=== PATIENT | male | born 1990 | race Caucasian/White ===

== ENCOUNTER 2024-08-10 16:51 | Inpatient (IN) ==
--- NOTE | 2024-08-10 17:21 | Emergency Department Note ---
Impression & Plan Chest pain, Non-ST elevation DE (NSTEMI), Bilateral pleural effusion, Sinus tachycardia ED Provider Note HISTORY OF PRESENT ILLNESS: Patient is a 33-year-old male presenting with chest pain. Patient reports for the last 3 days he has been having persistent substernal chest pain. Locates the pain in the substernal region and states that it does not radiate into his back or abdomen. He states that it seems to wax and wane in intensity. Currently rates it a 3 out of 10. He describes it as a pressure sensation. Pain is worse with laying flat. Has had some associated shortness of breath with the chest pain. Denies any recent fevers. Denies any DVT or PE history. Denies any history of cardiac stents. He is not on any anticoagulation or antiplatelet therapy. Denies any nausea, vomiting or diarrhea. He denies any injury to the chest. Denies ever having chest pain like this before. He was unable to sleep last night secondary to discomfort while laying flat. He states he feels like he cannot take a deep breath. ROS: as above PHYSICAL EXAM: Constitutional: Patient appears in no acute distress. HENT: Head: Normocephalic and atraumatic. Eyes: EOMI, PERRL Mouth/Throat: Mucous membranes moist. Neck: Trachea midline. Neck supple. Cardiovascular: Tachycardic with regular rhythm. No murmurs, rubs or gallops. Intact distal pulses. Pulmonary/Chest: No respiratory distress. Breath sounds clear and equal bilaterally. No wheezes or rales. Abdominal: Abdomen soft, no tenderness, rebound or guarding. Musculoskeletal: No edema, tenderness or deformity noted. Skin: Warm and dry. No rash, erythema, pallor or cyanosis Psychiatric: Appropriate mood and affect for situation. Neurological: Alert and keenly responsive. CN II-XII grossly intact, moving all extremities equally and fully. MDM: - Vitals signs showed hypertension and tachycardia - History obtained via patient. History as above. - Chronic conditions affecting care: None - Differential diagnoses include, but are not limited to: Acute coronary syndrome; pulmonary embolism; dissection; tension pneumothorax; esophageal rupture; pneumonia - Order placed for continuous cardiac monitoring. At this time, monitor showed rate of 128 bpm with normal sinus rhythm, per my interpretation. - External medical records reviewed. - EKG interpreted by myself showed normal sinus rhythm. Rate tachycardic at 122 bpm. QT 328. No acute ischemic changes. However, noted to have some T wave inversions and depressions in leads I, II and aVF, as well as in V4 through V6. - Laboratory workup interpreted by myself showed normal WBC; normal PT/INR; elevated dimer (770); normal electrolytes; elevated troponin (34.1) - CXR negative for pneumonia, per my interpretation - Repeat troponin slightly elevated at 34.5 - Viral respiratory panel negative - CT PE negative for PE. However, noted to have small bilateral pleural effusions layering 1.5 cm on the left and 4 cm on the right. Noted to have some slight central edema and small amount of subsegmental atelectasis. Heart is enlarged but no pericardial effusion. - Discussion was had with case planner about patient's case and need for admission - Hospitalist, Dr. Jackson, consulted for admission - [facility] ASSESSMENT AND PLAN: Diagnosis: Chest pain; NSTEMI; bilateral pleural effusions; sinus tachycardia Plan: admit Past Med/Surg History Problem List (Updated 08/10/24 @ 22:40 by Jackeline Andrade MD) Sinus tachycardia (Acute) Bilateral pleural effusion (Acute) Non-ST elevation DE (NSTEMI) (Acute) Chest pain (Acute) Ankle sprain (Acute) Social History Smoking Status: Current every day smoker Tobacco Type: E-cigarettes / Vaping Preferred Language: Slovenian Feels Safe at Home: Yes Allergies Allergies Allergy/AdvReac Type Severity Reaction Status Date / Time No Known Allergies Allergy Unverified 08/10/24 17:15 Home Meds Home Medications Medication Instructions Recorded Confirmed No Known Home Medications 08/10/24 08/10/24 Results & Data (ED) Vital Signs Vital Signs - 24 hr 08/10/24 16:56 08/10/24 17:25 08/10/24 17:26 Temperature 36.6 C Temperature Source Temporal Artery Scan Pulse Rate 126 H 118 H Pulse Rate [Apical] Pulse Rate from SpO2 Sensor Pulse Rhythm Regular Pulse Rhythm [Apical] Pulse Strength Normal Respiratory Rate 19 Respiratory Effort / Characteristics Non-Labored Respiratory Depth Normal Respiratory Pattern Regular Blood Pressure 151/101 H 146/113 H Blood Pressure [Left Arm] Blood Pressure Mean 117 120 Blood Pressure Mean [Left Arm] Blood Pressure Position Sitting Pulse Oximetry 100 Oxygen Delivery Method Room Air Sepsis Recent Fever Within 48 Hours No Sepsis New/Unexplained Change in Mental Status No Sepsis Action Taken by Nursing No Action Required 08/10/24 17:39 08/10/24 17:51 08/10/24 18:00 Temperature Temperature Source Pulse Rate 116 H 116 H Pulse Rate [Apical] Pulse Rate from SpO2 Sensor 116 H Pulse Rhythm Pulse Rhythm [Apical] Pulse Strength Respiratory Rate 15 19 Respiratory Effort / Characteristics Respiratory Depth Respiratory Pattern Blood Pressure 129/107 H Blood Pressure [Left Arm] Blood Pressure Mean 122 Blood Pressure Mean [Left Arm] Blood Pressure Position Pulse Oximetry 99 Oxygen Delivery Method Sepsis Recent Fever Within 48 Hours Sepsis New/Unexplained Change in Mental Status Sepsis Action Taken by Nursing 08/10/24 18:03 08/10/24 18:14 08/10/24 19:30 Temperature Temperature Source Pulse Rate 117 H Pulse Rate [Apical] Pulse Rate from SpO2 Sensor 118 H Pulse Rhythm Pulse Rhythm [Apical] Pulse Strength Respiratory Rate 18 Respiratory Effort / Characteristics Respiratory Depth Respiratory Pattern Blood Pressure Blood Pressure [Left Arm] Blood Pressure Mean Blood Pressure Mean [Left Arm] Blood Pressure Position Pulse Oximetry 98 97 99 Oxygen Delivery Method Room Air Room Air Sepsis Recent Fever Within 48 Hours Sepsis New/Unexplained Change in Mental Status Sepsis Action Taken by Nursing 08/10/24 19:30 08/10/24 21:00 08/10/24 22:13 Temperature Temperature Source Pulse Rate Pulse Rate [Apical] 117 H 119 H 120 H Pulse Rate from SpO2 Sensor Pulse Rhythm Pulse Rhythm [Apical] Regular Regular Pulse Strength Respiratory Rate 22 20 15 Respiratory Effort / Characteristics Non-Labored Spontaneous Non-Labored Spontaneous Non-Labored Spontaneous Respiratory Depth Normal Normal Normal Respiratory Pattern Regular Regular Regular Blood Pressure Blood Pressure [Left Arm] 142/114 H 155/118 H 162/123 H Blood Pressure Mean Blood Pressure Mean [Left Arm] 123 130 136 Blood Pressure Position Pulse Oximetry 99 99 100 Oxygen Delivery Method Room Air Room Air Room Air Sepsis Recent Fever Within 48 Hours Sepsis New/Unexplained Change in Mental Status Sepsis Action Taken by Nursing Laboratory Data 08/10/24 17:52 08/10/24 17:52 Lab Results 08/10/24 08/10/24 08/10/24 Range/Units 17:52 17:56 20:11 WBC 9.68 (4.8-10.8) K/ul RBC 4.94 (4.70-6.10) M/uL Hgb 15.5 (14.0-18.0) g/dl Hct 43.9 (42.0-52.0) % MCV 88.9 (80.0-100.0) fL MCH 31.4 (25.0-34.0) pg MCHC 35.3 (32.0-36.0) g/dL RDW Std Deviation 42.0 (36.4-46.3) fL RDW Coeff of Gabriel 12.9 (11.5-14.5) % Plt Count 294 (130-400) K/uL MPV 11.1 (9.4-12.4) fL Immature Gran % (Auto) 0.4 % Neut % (Auto) 68.1 % Lymph % (Auto) 24.1 % Douglas % (Auto) 5.5 % Eos % (Auto) 1.3 % Baso % (Auto) 0.6 % Neut # (Auto) 6.59 H (1.40-6.50) K/uL Lymph # (Auto) 2.33 (1.20-3.40) K/uL Douglas # (Auto) 0.53 (0.11-0.59) K/uL Eos # (Auto) 0.13 (0.00-0.50) K/uL Baso # (Auto) 0.06 (0.00-0.20) K/uL Immature Gran # (Auto) 0.04 (0.01-0.20) K/uL PT 11.3 (9.0-12.0) Seconds INR 1.0 (0.9-1.1) APTT 26 (21-31) Seconds PTT Ratio 1.0 D-Dimer 770 H* (0-500) ug/L FEU Sodium 138 (136-145) mmol/L Potassium 4.2 (3.5-5.1) mmol/L Chloride 107 (98-107) mmol/L Carbon Dioxide 23 (21-32) mmol/L Anion Gap 8 (3-11) BUN 23 (6-23) mg/dl Creatinine 1.24 (0.6-1.4) mg/dl Est Cr Clr Drug Dosing 95.7 ml/min Est GFR ( Amer) 88.6 ml/min Est GFR (Non-Af Amer) 76.4 ml/min BUN/Creatinine Ratio 18.5 (10-20) Glucose 84 (70-99(Fasting)) mg/dl Calcium 9.4 (8.6-10.3) mg/dl Magnesium 2.1 (1.7-2.4) mg/dl Total Bilirubin 0.6 (0.2-1.0) mg/dl AST 30 (13-39) U/L ALT 44 (7-52) U/L Alkaline Phosphatase 62 (34-104) U/L Troponin I High Sens 34.1 H 34.5 H (0-20) pg/ml Total Protein 6.4 (6.0-8.3) gm/dl Albumin 4.2 (3.4-5.0) gm/dl Globulin 2.2 L (2.5-4.0) gm/dl Albumin/Globulin Ratio 1.9 (0.9-2) Adenovirus (PCR) Not Detected (NotDetected) B. pertussis DNA (PCR) Not Detected (NotDetected) B.parapertussis DNA PCR Not Detected (NotDetected) C. pneumoniae DNA (PCR) Not Detected (NotDetected) Coronavirus OC43 (PCR) Not Detected (NotDetected) Coronavirus HKU1 (PCR) Not Detected (NotDetected) Coronavirus 229E (PCR) Not Detected (NotDetected) SARS-CoV-2 (PCR) Not Detected (NotDetected) Coronavirus NL63 (PCR) Not Detected (NotDetected) Human Metapneumovir PCR Not Detected (NotDetected) Influenza Type A (PCR) Not Detected (NotDetected) Influenza Type B (PCR) Not Detected (NotDetected) M. pneumoniae (PCR) Not Detected (NotDetected) Parainfluenza 1 (PCR) Not Detected (NotDetected) Parainfluenza 2 (PCR) Not Detected (NotDetected) Parainfluenza 3 (PCR) Not Detected (NotDetected) Parainfluenza 4 (PCR) Not Detected (NotDetected) RSV (PCR) Not Detected (NotDetected) Entero/Rhino (PCR) Not Detected (NotDetected) Administered Medications Discontinued Medications Clonidine HCl (Clonidine Hcl 0.1 Mg Tab) 0.1 mg PO NOW ONE Stop: 08/10/24 21:59 Last Admin: 08/10/24 22:15 Dose: 0.1 mg Documented By: CIELO Ioversol (Optiray 320 125ml) 119 ml IV ONCE ONE Stop: 08/10/24 19:23 Last Admin: 08/10/24 19:22 Dose: 119 ml Documented By: KARISSA Imaging Data Radiologist's Impression: Chest X-Ray 08/10/24 16:57 XR chest 1V not portable HISTORY: 33 years-old Male Chest pain, nonspecific acute chest pain COMPARISON: 11/19/2012 chest x-ray TECHNIQUE: AP view of the chest FINDINGS: Cardiac silhouette is enlarged. No pneumothorax, pleural effusion or airspace consolidation. Bones appear normal. IMPRESSION: 1. Enlargement of the cardiac silhouette may be accentuated by technique. 2. The lungs appear clear. ACT 112: Negative or not required by law. The above report was generated using voice recognition software. It may contain grammatical, syntax or spelling errors. Electronically signed by: Boston Brown M.D. 08/10/2024 5:58 PM Chest CTA 08/10/24 17:12 Exam(s): CTA CHEST IV Amt: 119ml EXAM: CT Angiography Chest With Intravenous Contrast CLINICAL HISTORY: Reason for exam: PE. TECHNIQUE: Axial computed tomographic angiography images of the chest with intravenous contrast. CTDI is 47.14 mGy and DLP is 1012.55 mGy-cm. Automated exposure control was utilized for the study. A dose lowering technique was utilized adhering to the principles of ALARA. MIP reconstructed images were created and reviewed. COMPARISON: Chest x-ray from August 10, 2024 FINDINGS: Pulmonary arteries: The pulmonary arterial tree is well opacified with contrast. No pulmonary embolism is identified. Aorta: No acute findings. No thoracic aortic aneurysm. Lungs: Lungs are well-inflated. Slight central edema is present as well as a small amount of bibasilar subsegmental atelectasis. No mass. Pleural space: There are small bilateral pleural effusions layering posteriorly measuring 1.5 cm on the left and 4 cm on the right. No pneumothorax. Heart: The heart is mildly to moderately enlarged. No pericardial effusion. No evidence of RV dysfunction. Bones/joints: Mild degenerative changes in the spine. No acute fracture or bone lesion is identified. No dislocation. Soft tissues: Unremarkable. Lymph nodes: Unremarkable. No enlarged lymph nodes. IMPRESSION: 1. Lungs are well-inflated. Slight central edema is present as well as a small amount of bibasilar subsegmental atelectasis. 2. There are small bilateral pleural effusions layering posteriorly measuring 1.5 cm on the left and 4 cm on the right. 3. The heart is mildly to moderately enlarged. No pericardial effusion. Consider CHF. 4. The pulmonary arterial tree is well opacified with contrast. No pulmonary embolism is identified. Electronically signed by: Ajay Carvajal MD 08/10/24 20:12 PM Discharge Plan Visit Data Chief Complaint: Chest Pain Stated Complaint: CHEST PAIN ED Provider: Jackeline Andrade Discharge Problem: Chest pain, Non-ST elevation DE (NSTEMI), Bilateral pleural effusion, Sinus tachycardia Forms Stand Alone Forms: Before the Call Prescriptions Prescriptions: No Action No Known Home Medications Referrals Referrals: PCP,NO [Physician] -
--- NOTE | 2024-08-10 18:00 | XRay Report ---
XR chest 1V not portable HISTORY: 33 years-old Male Chest pain, nonspecific acute chest pain COMPARISON: 11/19/2012 chest x-ray TECHNIQUE: AP view of the chest FINDINGS: Cardiac silhouette is enlarged. No pneumothorax, pleural effusion or airspace consolidation. Bones ap pear normal. IMPRESSION: 1. Enlargement of the cardiac silhouette may be accentuated by technique. 2. The lungs appear clear. ACT 112: Negative or not required by law. The above report was generated using voice recognition software. It may contain grammatical, syntax o r spelling errors. Electronically signed by: Boston Brown M.D. 08/10/2024 5:58 PM
[2024-08-10 18:34] LABS: Basophils # (auto) 0.06 K/uL (0.00-0.20); Basophils % (auto) 0.6 %; Eosinophils # (auto) 0.13 K/uL (0.00-0.50); Eosinophils % (auto) 1.3 %; Hematocrit (blood only) 43.9 % (42.0-52.0); Hemoglobin 15.5 g/dl (14.0-18.0); Immature Granulocytes # (auto) 0.04 K/uL (0.01-0.20); Immature Granulocytes % (auto) 0.4 %; Lymphocytes # (auto) 2.33 K/uL (1.20-3.40); Lymphocytes % (auto) 24.1 %; Mean Corpuscular Hemoglobin 31.4 pg (25.0-34.0); Mean Corpuscular Hgb Conc 35.3 g/dL (32.0-36.0); Mean Corpuscular Volume 88.9 fL (80.0-100.0); Mean Platelet Volume 11.1 fL (9.4-12.4); Monocytes # (auto) 0.53 K/uL (0.11-0.59); Monocytes % (auto) 5.5 %; Neutrophils # (auto) 6.59 K/uL (1.40-6.50); Neutrophils % (auto) 68.1 %; Platelet Count 294 K/uL (130-400); RDW Coefficient of Variation 12.9 % (11.5-14.5); Red Blood Count 4.94 M/uL (4.70-6.10); White Blood Count 9.68 K/ul (4.8-10.8)
[2024-08-10 18:52] LABS: Albumin Globulin Ratio 1.9 (0.9-2); Albumin Level 4.2 gm/dl (3.4-5.0); BUN Creatinine Ratio 18.5 (10-20); Bilirubin,Total 0.6 mg/dl (0.2-1.0); Calcium 9.4 mg/dl (8.6-10.3); Creatinine Clr Calc Pharmacy 95.7 ml/min; Est GFR (African American) 88.6 ml/min; Est GFR (Non-African American) 76.4 ml/min; Globulin 2.2 gm/dl (2.5-4.0); Magnesium 2.1 mg/dl (1.7-2.4); Potassium 4.2 mmol/L (3.5-5.1); Total Protein 6.4 gm/dl (6.0-8.3)
[2024-08-10 18:59] LABS: Troponin I High Sensitivity 34.1 pg/ml (0-20)
[2024-08-10 19:07] LABS: Partial Thromboplastin Time 26 Seconds (21-31); Prothrombin Time 11.3 Seconds (9.0-12.0)
[2024-08-10] MEDS: OPTIRAY 320 125ml IV ONE (19:22)
[2024-08-10 19:28] LABS: Adenovirus PCR Not Detected (NotDetected); Bordetella parapertussis PCR Not Detected (NotDetected); Bordetella pertussis PCR Not Detected (NotDetected); Chlamydia pneumoniae PCR Not Detected (NotDetected); Coronavirus 229E PCR Not Detected (NotDetected); Coronavirus CoV-2 (COVID19)PCR Not Detected (NotDetected); Coronavirus HKU1 PCR Not Detected (NotDetected); Coronavirus NL63 PCR Not Detected (NotDetected); Coronavirus OC43PCR Not Detected (NotDetected); Human Metapneumovirus PCR Not Detected (NotDetected); Influenza A PCR Not Detected (NotDetected); Influenza B PCR Not Detected (NotDetected); Mycoplasma pneumoniae PCR Not Detected (NotDetected); Parainfluenza Virus 1 PCR Not Detected (NotDetected); Parainfluenza Virus 2 PCR Not Detected (NotDetected); Parainfluenza Virus 3 PCR Not Detected (NotDetected); Parainfluenza Virus 4 PCR Not Detected (NotDetected); Respiratory Syncytial VirusPCR Not Detected (NotDetected); Rhinovirus/Enterovirus PCR Not Detected (NotDetected)
[2024-08-10 19:41] LABS: D Dimer 770 ug/L FEU (0-500)
--- NOTE | 2024-08-10 20:13 | CT Scan Report ---
Exam(s): CTA CHEST IV Amt: 119ml EXAM: CT Angiography Chest With Intravenous Contrast CLINICAL HISTORY: Reason for exam: PE. TECHNIQUE: Axial computed tomographic angiography images of the chest with intravenous contrast. CTDI is 47.14 mGy and DLP is 1012.55 mGy-cm. Automated exposure control was utilized for the study. A dose lowering technique was utilized adhering to the principles of ALARA. MIP reconstructed images were created and reviewed. COMPARISON: Chest x-ray from August 10, 2024 FINDINGS: Pulmonary arteries: The pulmonary arterial tree is well opacified with contrast. No pulmonary embolism is identified. Aorta: No acute findings. No thoracic aortic aneurysm. Lungs: Lungs are well-inflated. Slight central edema is present as well as a small amount of bibasilar subsegmental atelectasis. No mass. Pleural space: There are small bilateral pleural effusions layering posteriorly measuring 1.5 cm on the left and 4 cm on the right. No pneumothorax. Heart: The heart is mildly to moderately enlarged. No pericardial effusion. No evidence of RV dysfunction. Bones/joints: Mild degenerative changes in the spine. No acute fracture or bone lesion is identified. No dislocation. Soft tissues: Unremarkable. Lymph nodes: Unremarkable. No enlarged lymph nodes. IMPRESSION: 1. Lungs are well-inflated. Slight central edema is present as well as a small amount of bibasilar subsegmental atelectasis. 2. There are small bilateral pleural effusions layering posteriorly measuring 1.5 cm on the left and 4 cm on the right. 3. The heart is mildly to moderately enlarged. No pericardial effusion. Consider CHF. 4. The pulmonary arterial tree is well opacified with contrast. No pulmonary embolism is identified. Electronically signed by: Ajay Carvajal MD 08/10/24 20:12 PM
[2024-08-10] MEDS: cloNIDine HCL 0.1 MG TAB PO ONE (22:15)
--- NOTE | 2024-08-10 22:46 | History & Physical Report ---
Date of Service August 10, 2024 Assessment & Plan (1) CHF (congestive heart failure): Plan: Etiology to be determined Chest pain from uncontrolled hypertension Likely chronic BP elevation given LVH Possible NSTEMI given relief with nitroglycerin Rosacea Admit to PCU Lasix 1 dose Strict I/Os, daily weights, CHF education Initiate beta-nancy for BP control and CHF Aspirin for CAD prevention until ACS ruled out Follow troponin TTE, Cardiology consult Re: CHF, chest pain N.p.o. in anticipation of ischemic workup Topical metronidazole for rosacea DVT prophylaxis per Lovenox subcu Full code Patient mother requesting updates providers. Ms. Joselo Horn, contact #[phone]. Text document was generated using [employer] voice recognition software. It may contain grammatical or spelling errors. Kindly contact undersigned for clarification of any documentation item in question. History of Present Illness Chief Complaint: Chest pain Primary Care Provider: Marshal Jamison, History obtained from patient, family, and records. No significant medical history. 3 days history of persistent pressure-like substernal pain without radiation. SOB from not being able to take a deep breath. Somewhat worse in the supine position. No fever, no chills, no cough symptoms. No headache. No URTI symptoms. No trauma. No fluid retention. Patient/family unaware of sleep apnea symptoms. Highest SBP of 160s documented at the ER. Chest pain improved with nitroglycerin administration at the ER. 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 Allergies Allergy/AdvReac Type Severity Reaction Status Date / Time No Known Allergies Allergy Unverified 08/10/24 17:15 Home Medications Medication Instructions Recorded Confirmed Type No Known Home Medications 08/10/24 08/10/24 History Past Med/Surg History Problem List (Updated 08/11/24 @ 03:37 by Lukas Jackson MD) CHF (congestive heart failure) Sinus tachycardia (Acute) Bilateral pleural effusion (Acute) Non-ST elevation LA (NSTEMI) (Acute) Chest pain (Acute) Ankle sprain (Acute) Social History Smoking Status: Current every day smoker Tobacco Type: E-cigarettes / Vaping Hx Alcohol Use: No Hx Substance Use: Yes Preferred Language: Finnish Community Living Instructor Required: No Beliefs That Will Affect Care: None Current Living Situation: Parent Feels Safe at Home: Yes Assistive Devices: None Review of Systems Review of Systems: As per HPI, all other systems reviewed and negative Physical Exam Physical Exam: GENERAL: Slightly uncomfortable, no respiratory distress SKIN: Normal color, warm HEENT: Red rash over both maxillae, pink palpebral conjunctivae, no ptosis, dry buccal mucosa NECK : Supple, no tenderness CHEST : Decreased breath sounds, no tenderness HEART : Tachycardic, no obvious murmurs ABDOMEN: Some distention, nontender EXTREMITIES : No LE swelling/tenderness, no other conspicuous deformities noted NEUROLOGIC : Coherent, no facial asymmetry, no other gross focality Results & Data Results & Data Vital Signs (Past 12 Hours) Vital Signs Temp Pulse Pulse Resp BP BP Pulse Ox 08/10/24 22:13 120 H 15 162/123 H 100 08/10/24 21:00 119 H 20 155/118 H 99 08/10/24 19:30 117 H 22 142/114 H 99 08/10/24 19:30 99 08/10/24 18:14 97 08/10/24 18:03 117 H 18 98 08/10/24 18:00 129/107 H 08/10/24 17:51 116 H 19 99 08/10/24 17:39 116 H 15 08/10/24 17:26 146/113 H 08/10/24 17:25 118 H 08/10/24 16:56 36.6 C 126 H 19 151/101 H 100 O2 Del Method 08/10/24 22:13 Room Air 08/10/24 21:00 Room Air 08/10/24 19:30 Room Air 08/10/24 19:30 Room Air 08/10/24 18:14 Room Air 08/10/24 18:03 08/10/24 18:00 08/10/24 17:51 08/10/24 17:39 08/10/24 17:26 08/10/24 17:25 08/10/24 16:56 Room Air Laboratory Results Laboratory Results WBC 9.68 K/ul (4.8-10.8) 08/10/24 17:52 RBC 4.94 M/uL (4.70-6.10) 08/10/24 17:52 Hgb 15.5 g/dl (14.0-18.0) 08/10/24 17:52 Hct 43.9 % (42.0-52.0) 08/10/24 17:52 MCV 88.9 fL (80.0-100.0) 08/10/24 17:52 MCH 31.4 pg (25.0-34.0) 08/10/24 17:52 MCHC 35.3 g/dL (32.0-36.0) 08/10/24 17:52 RDW Std Deviation 42.0 fL (36.4-46.3) 08/10/24 17:52 RDW Coeff of Gabriel 12.9 % (11.5-14.5) 08/10/24 17:52 Plt Count 294 K/uL (130-400) 08/10/24 17:52 MPV 11.1 fL (9.4-12.4) 08/10/24 17:52 Immature Gran % (Auto) 0.4 % 08/10/24 17:52 Neut % (Auto) 68.1 % 08/10/24 17:52 Lymph % (Auto) 24.1 % 08/10/24 17:52 [place] % (Auto) 5.5 % 08/10/24 17:52 Eos % (Auto) 1.3 % 08/10/24 17:52 Baso % (Auto) 0.6 % 08/10/24 17:52 Neut # (Auto) 6.59 K/uL (1.40-6.50) H 08/10/24 17:52 Lymph # (Auto) 2.33 K/uL (1.20-3.40) 08/10/24 17:52 [place] # (Auto) 0.53 K/uL (0.11-0.59) 08/10/24 17:52 Eos # (Auto) 0.13 K/uL (0.00-0.50) 08/10/24 17:52 Baso # (Auto) 0.06 K/uL (0.00-0.20) 08/10/24 17:52 Immature Gran # (Auto) 0.04 K/uL (0.01-0.20) 08/10/24 17:52 ESR 4 mm/hr (0-15) 08/10/24 17:52 PT 11.3 Seconds (9.0-12.0) 08/10/24 17:52 INR 1.0 (0.9-1.1) 08/10/24 17:52 APTT 26 Seconds (21-31) 08/10/24 17:52 PTT Ratio 1.0 08/10/24 17:52 D-Dimer 770 ug/L FEU (0-500) H* 08/10/24 17:52 Sodium 138 mmol/L (136-145) 08/10/24 17:52 Potassium 4.2 mmol/L (3.5-5.1) 08/10/24 17:52 Chloride 107 mmol/L (98-107) 08/10/24 17:52 Carbon Dioxide 23 mmol/L (21-32) 08/10/24 17:52 Anion Gap 8 (3-11) 08/10/24 17:52 BUN 23 mg/dl (6-23) 08/10/24 17:52 Creatinine 1.24 mg/dl (0.6-1.4) 08/10/24 17:52 Est Cr Clr Drug Dosing 95.7 ml/min 08/10/24 17:52 Est GFR ( Amer) 88.6 ml/min 08/10/24 17:52 Est GFR (Non-Af Amer) 76.4 ml/min 08/10/24 17:52 BUN/Creatinine Ratio 18.5 (10-20) 08/10/24 17:52 Glucose 84 mg/dl (70-99(Fasting)) 08/10/24 17:52 Calcium 9.4 mg/dl (8.6-10.3) 08/10/24 17:52 Magnesium 2.1 mg/dl (1.7-2.4) 08/10/24 17:52 Total Bilirubin 0.6 mg/dl (0.2-1.0) 08/10/24 17:52 AST 30 U/L (13-39) 08/10/24 17:52 ALT 44 U/L (7-52) 08/10/24 17:52 Alkaline Phosphatase 62 U/L (34-104) 08/10/24 17:52 Troponin I High Sens 34.5 pg/ml (0-20) H 08/10/24 20:11 Total Protein 6.4 gm/dl (6.0-8.3) 08/10/24 17:52 Albumin 4.2 gm/dl (3.4-5.0) 08/10/24 17:52 Globulin 2.2 gm/dl (2.5-4.0) L 08/10/24 17:52 Albumin/Globulin Ratio 1.9 (0.9-2) 08/10/24 17:52 Adenovirus (PCR) Not Detected (NotDetected) 08/10/24 17:56 B. pertussis DNA (PCR) Not Detected (NotDetected) 08/10/24 17:56 B.parapertussis DNA PCR Not Detected (NotDetected) 08/10/24 17:56 C. pneumoniae DNA (PCR) Not Detected (NotDetected) 08/10/24 17:56 Coronavirus OC43 (PCR) Not Detected (NotDetected) 08/10/24 17:56 Coronavirus HKU1 (PCR) Not Detected (NotDetected) 08/10/24 17:56 Coronavirus 229E (PCR) Not Detected (NotDetected) 08/10/24 17:56 SARS-CoV-2 (PCR) Not Detected (NotDetected) 08/10/24 17:56 Coronavirus NL63 (PCR) Not Detected (NotDetected) 08/10/24 17:56 Human Metapneumovir PCR Not Detected (NotDetected) 08/10/24 17:56 Influenza Type A (PCR) Not Detected (NotDetected) 08/10/24 17:56 Influenza Type B (PCR) Not Detected (NotDetected) 08/10/24 17:56 M. pneumoniae (PCR) Not Detected (NotDetected) 08/10/24 17:56 Parainfluenza 1 (PCR) Not Detected (NotDetected) 08/10/24 17:56 Parainfluenza 2 (PCR) Not Detected (NotDetected) 08/10/24 17:56 Parainfluenza 3 (PCR) Not Detected (NotDetected) 08/10/24 17:56 Parainfluenza 4 (PCR) Not Detected (NotDetected) 08/10/24 17:56 RSV (PCR) Not Detected (NotDetected) 08/10/24 17:56 Entero/Rhino (PCR) Not Detected (NotDetected) 08/10/24 17:56 Impressions Chest X-Ray 08/10/24 16:57 XR chest 1V not portable HISTORY: 33 years-old Male Chest pain, nonspecific acute chest pain COMPARISON: 11/19/2012 chest x-ray TECHNIQUE: AP view of the chest FINDINGS: Cardiac silhouette is enlarged. No pneumothorax, pleural effusion or airspace consolidation. Bones appear normal. IMPRESSION: 1. Enlargement of the cardiac silhouette may be accentuated by technique. 2. The lungs appear clear. ACT 112: Negative or not required by law. The above report was generated using voice recognition software. It may contain grammatical, syntax or spelling errors. Electronically signed by: Boston Brown M.D. 08/10/2024 5:58 PM Chest CTA 08/10/24 17:12 Exam(s): CTA CHEST IV Amt: 119ml EXAM: CT Angiography Chest With Intravenous Contrast CLINICAL HISTORY: Reason for exam: PE. TECHNIQUE: Axial computed tomographic angiography images of the chest with intravenous contrast. CTDI is 47.14 mGy and DLP is 1012.55 mGy-cm. Automated exposure control was utilized for the study. A dose lowering technique was utilized adhering to the principles of ALARA. MIP reconstructed images were created and reviewed. COMPARISON: Chest x-ray from August 10, 2024 FINDINGS: Pulmonary arteries: The pulmonary arterial tree is well opacified with contrast. No pulmonary embolism is identified. Aorta: No acute findings. No thoracic aortic aneurysm. Lungs: Lungs are well-inflated. Slight central edema is present as well as a small amount of bibasilar subsegmental atelectasis. No mass. Pleural space: There are small bilateral pleural effusions layering posteriorly measuring 1.5 cm on the left and 4 cm on the right. No pneumothorax. Heart: The heart is mildly to moderately enlarged. No pericardial effusion. No evidence of RV dysfunction. Bones/joints: Mild degenerative changes in the spine. No acute fracture or bone lesion is identified. No dislocation. Soft tissues: Unremarkable. Lymph nodes: Unremarkable. No enlarged lymph nodes. IMPRESSION: 1. Lungs are well-inflated. Slight central edema is present as well as a small amount of bibasilar subsegmental atelectasis. 2. There are small bilateral pleural effusions layering posteriorly measuring 1.5 cm on the left and 4 cm on the right. 3. The heart is mildly to moderately enlarged. No pericardial effusion. Consider CHF. 4. The pulmonary arterial tree is well opacified with contrast. No pulmonary embolism is identified. Electronically signed by: Ajay Carvajal MD 08/10/24 20:12 PM Diagnostic Findings EKG as per my interpretation : Rate 120, sinus tachycardia, normal axis, T wave inversion inferior and lateral leads
[2024-08-10] MEDS ORDERED: LORazepam 0.5 MG TAB PO PRN (22:48)
[2024-08-10] MEDS ORDERED: NITROGLYCERIN SL 0.4 MG/TAB TAB SL PRN (22:48)
[2024-08-10] MEDS ORDERED: PROMETHAZINE 6.25 MG/50.25 ML BAG IV PRN (22:48)
[2024-08-10] MEDS ORDERED: oxyCODONE HCL IR 5 MG TAB (IMMEDIATE RELEASE) PO PRN (22:48)
[2024-08-10] MEDS ORDERED: MoRPHine SULFATE 4 MG/ML 1 ML CARP\\VIAL IV PRN (22:48)
[2024-08-10 22:53] LABS: Thyroid Stimulating Hormone 3.871 uIu/ml (0.300-4.500)
[2024-08-10] MEDS: NITROGLYCERIN SL 0.4 MG/TAB TAB SL STA (23:07)
[2024-08-10] MEDS: ALBUMIN 25% 25 GM/100 ML VIAL IV ONE (23:08)
[2024-08-10 23:16] LABS: C Reactive Protein 0.54 mg/dl (0-0.5)
[2024-08-10 23:33] LABS: Appearance Urine Clear (Clear); Bilirubin Urine Negative (Negative); Blood Urine Negative (Negative); Color Urine Yellow; Glucose Urine UA Negative (Negative); Ketones Urine 1+ (Negative); Leukocyte Esterase Urine Negative (Negative); Nitrite Urine Negative (Negative); Protein Urine Negative (Negative); Specific Gravity Urine 1.035 (1.000-1.030); Urobilinogen Urine Negative (Negative); pH Urine 5.5 (4.5-7.5)
[2024-08-11 00:01] LABS: Amphetamines+Metham, Urine Neg (Neg); Barbiturates, Urine Neg (Neg); Benzodiazepine, Urine Neg (Neg); Cocaine, Urine Neg (Neg); Fentanyl, Urine Neg (Neg); MDMA (Ecstacy), Urine Neg (Neg); Marijuana, Urine Pos (Neg); Methadone, Urine Neg (Neg); Opiate, Urine Neg (Neg); Phencyclidine, Urine Neg (Neg)
[2024-08-11] MEDS: METOPROLOL TARTRATE 25 MG TAB PO SCH (01:42)
[2024-08-11] MEDS: METOPROLOL TARTRATE 1 MG/ML VIAL IV STA (01:45)
[2024-08-11] MEDS: ASPIRIN 81 MG ECTAB PO STA (01:46)
[2024-08-11] MEDS: FUROSEMIDE INJ 20 MG/2 ML VIAL IV ONE (01:46)
[2024-08-11] MEDS: metroNIDAZOLE 0.75% TOPICAL GEL 45 GM TUBE TOP SCH (01:46)
[2024-08-11] MEDS: METOPROLOL TARTRATE 25 MG TAB PO STA (03:28)
--- OUTSIDE RECORDS SUMMARY | 2024-08-11 06:45 | External Medical Summary | Summary of Care ---
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 Name Role Phone Unavailable Primary Care Provider Unavailabl e Encounter Details Date Type Department Care Team (Late st Contact Info) Description 07/13/2024 Population Health External Data Unspecified Department Allergies No known active allergiesdocumented as of this encounter (statuses as of 07/13/2024) Medications Medication Sig Dispensed Refills Start Date End Date Status CLOBETASOL PROPIONATE 0.05 % EX SOLNIndications:Seborr heic dermatitis, unspecified Apply to scalp twice daily as needed 50 mL 5 06/03/2012 Active HYDROCORTISONE 2.5 % EX CREAIndications:Seborr heic dermatitis, unspecified Apply to affected area twice daily as needed 1 Tube 5 06/03/2012 Active documented as of this encounter (statuses as of 07/13/2024) Active Problems Problem Noted Date Diagnosed Date Other specified drug dependence, unspecified ADVANCE DIRECTIVE INFORMATION 08/11/2006 Overview: Not applicable documented as of this encounter (statuses as of 07/13/2024) Immunizations Name Administration Dates Next Due HEP A - Hepatitis A (Adult > 18 yrs) 01/21/2012 Meningococcal Conjugate Vaccine (Menactra/Menveo ) 08/11/2006 TDAP, Age 7 and older, IM (Adacel) 06/04/2011 Yellow Fever Vaccine, Live (YF-Vax) 01/21/2012 documented as of this encounter Social History Tobacco Use Types Packs/Day Years Used Date Smoking Tobacco: Some Days Smokeless Tobacco: Never Alcohol Use Standard Drinks/Week Comments Not Asked 0 (1 standard drink = 0.6 oz pur e alcohol) Utilities Answer Date Recorded Do you have trouble paying y our heating, water, or electric bill? (Adult - for ages 18 years and over) Not on file 05/03/2024 Is your family able to pay t he heat, water, or electric bill? (Household - for ages 0-17 years) Not on file 05/03/2024 Does your family have access to good internet? (Household - for ages 0-17 years) Not on file 05/03/2024 Social Connections Answer Date Recorded How often do you feel lonely or isolated from those around you? (Adult - for ages 18 years and over) Not on file 05/03/2024 Sex and Gender Information Value Date Recorded Sex Assigned at Not on file Gender Identity Not on file Sexual Orientation Not on file documented as of this encounter Plan of Treatment Health Maintenance Due Date Last Done Comments Pneumococcal Vaccine: Pediatrics (0 to 5 Years) and At-Risk Patients (6 to 64 Years) (1 of 2 - PCV) 1997 Depression Screening 2003 HIV Screening 2006 Hepatitis C Screening 2009 DTap/Tdap Vaccines (7 - Td or Tdap) 06/04/2021 06/04/2011, 04/24/2004, 10/12/1995, Additional history exists COVID-19 Vaccine (2022- season) 2023 Influenza Vaccine (FLU shot) (#1) 2024 Hepatitis B Vaccine Completed 02/16/1993, 09/17/1992, 08/17/1992 MENINGOCOCCAL (MENACTRA/MENVEO) Aged Out 08/11/2006 No longer eligible based on patient's age to complete this topic HPV (Gardasil) Vaccine Aged Out No lo nger eligible based on patient's age to complete this topic documented as of this encounter Medical Devices Not on filedocumented as of this encounter
[2024-08-11 07:40] LABS: Basophils # (auto) 0.06 K/uL (0.00-0.20); Basophils % (auto) 0.7 %; Eosinophils # (auto) 0.16 K/uL (0.00-0.50); Eosinophils % (auto) 1.8 %; Hematocrit (blood only) 45.7 % (42.0-52.0); Hemoglobin 16.1 g/dl (14.0-18.0); Immature Granulocytes # (auto) 0.03 K/uL (0.01-0.20); Immature Granulocytes % (auto) 0.3 %; Lymphocytes # (auto) 1.74 K/uL (1.20-3.40); Lymphocytes % (auto) 19.8 %; Mean Corpuscular Hemoglobin 31.4 pg (25.0-34.0); Mean Corpuscular Hgb Conc 35.2 g/dL (32.0-36.0); Mean Corpuscular Volume 89.3 fL (80.0-100.0); Mean Platelet Volume 10.2 fL (9.4-12.4); Monocytes # (auto) 0.46 K/uL (0.11-0.59); Monocytes % (auto) 5.2 %; Neutrophils # (auto) 6.32 K/uL (1.40-6.50); Neutrophils % (auto) 72.2 %; Platelet Count 281 K/uL (130-400); RDW Coefficient of Variation 12.9 % (11.5-14.5); RDW Standard Deviation 42.1 fL (36.4-46.3); Red Blood Count 5.12 M/uL (4.70-6.10); White Blood Count 8.77 K/ul (4.8-10.8)
[2024-08-11 08:26] LABS: Troponin I High Sensitivity 26.8 pg/ml (0-20)
[2024-08-11] MEDS: ENOXAPARIN INJ 40 MG/0.4 ML SYR SQ SCH (08:36)
[2024-08-11] MEDS ORDERED: ENOXAPARIN INJ 40 MG/0.4 ML SYR SQ SCH (09:00)
[2024-08-11] MEDS ORDERED: METOPROLOL TARTRATE 25 MG TAB PO SCH ×2 (09:00→21:00)
[2024-08-11 09:06] LABS: Calcium 9.5 mg/dl (8.6-10.3); Potassium 3.9 mmol/L (3.5-5.1)
[2024-08-11 09:13] LABS: BUN Creatinine Ratio 17.5 (10-20); Chol HDL Ratio 4.3 (0-5); Creatinine Clr Calc Pharmacy 98.5 ml/min; Est GFR (African American) 92.2 ml/min; Est GFR (Non-African American) 79.5 ml/min
--- NOTE | 2024-08-11 10:34 | Cardiology Consultation ---
Date of Consultation August 11, 2024 Assessment & Plan (1) Acute heart failure with reduced ejection fraction and diastolic dysfunction: (2) Sinus tachycardia: (3) Bilateral pleural effusion: (4) Elevated troponin I level: Plan 33-year-old male with new onset heart failure with reduced ejection fraction. Echocardiogram demonstrating severely reduced LV function. Family history of congestive heart failure in 2 first-degree relatives at young age (brother and father). Recommend initiation of goal-directed medical therapy. Toprol-XL 25 mg twice daily in addition to Entresto 24-25 mg twice daily. 40mg IV lasix x 1 now with close monitoring of fluid balance, daily weight, GFR, and electrolytes. Consider additional dose of IV diuresis this evening pending clinical response. Ultimately ischemic evaluation will be performed when patient has improved clinically from a heart failure perspective although I suspect cardiomyopathy is familial. Genetic testing will be arranged as an outpatient. Lab studies regarding secondary causes of cardiomyopathy ordered including iron studies, serum and urine light chains/electrophoresis, TSH, and Lyme screening. Viral panel unremarkable. I spent a total of 60 minutes on the date of service in preparation, delivery, and documentation of the care provided to this patient, excluding any time spent in the performance of separately billed services. History of Present Illness Reason for Consultation: chest pain Requesting Physician: Dr. Jackson Attending Physician: Adal Jones MD History of Present Illness 33-year-old male presents to the emergency department with chest pressure, shortness of breath, orthopnea, and paroxysmal nocturnal dyspnea. Symptoms present for approximately 4 days. 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 Notes inability to fall asleep due to orthopnea over the past 48 hours. He came to the ER with evidence of mildly elevated high-sensitivity troponin, and BNP. A CT of the chest was performed demonstrating small bilateral pleural effusions. Preliminary review of bedside echocardiogram demonstrates severe LV systolic function with global hypokinesis, left ventricular ejection fraction of 20%. Reports 2 brothers and uncle with cardiomyopathy and congestive heart failure. Both of his brothers diagnosed in their early 40s. Denies history of sudden cardiac . Denies any recent alcohol or illicit drug use. Utilizes marijuana occasionally. 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 Beliefs That Will Affect Care: None Current Living Situation: Parent Feels Safe at Home: Yes Assistive Devices: None Review of Systems Review of Systems: All systems reviewed & are unremarkable except as noted in Subjective Physical Exam Constitutional: well nourished and + ill appearing; no acute distress Respiratory: normal respiratory effort; no respiratory distress and no retractions Auscultation: + diminished lung sounds (Bases bilateral) and + rales (Bases bilateral); no rhonchi and no wheezes Cardiovascular: Rate/Rhythm: regular rate, regular rhythm and + tachycardic Heart Sounds: normal S1 and normal S2; no murmur Vessels: + JVD and radial pulses present Extremities: no edema Gastrointestinal (Abdomen): Inspection/Auscultation: abdomen normal to inspection and normal bowel sounds; abdomen not distended Percussion/Palpation: abdomen soft; abdomen nontender, no guarding and abdomen not rigid Neurologic: CN's II-XI intact bilaterally and moves all extremities; no focal motor deficits Results & Data Vital Signs (Past 12 Hours) Vital Signs Temp Pulse Pulse Resp BP BP BP 08/11/24 08:00 36.6 C 113 H 16 135/110 H 08/11/24 03:01 111 H 126/103 H 08/11/24 03:00 36.8 C 112 H 18 126/103 H 08/11/24 01:54 109 H 08/11/24 01:45 113 H 163/86 H 08/11/24 01:24 08/11/24 01:24 36.4 C L 113 H 18 163/86 H 08/11/24 01:00 110 H 20 125/96 08/11/24 01:00 08/11/24 00:30 104 H 23 126/90 08/11/24 00:00 108 H 22 126/98 08/10/24 23:31 108 H 20 135/105 H 08/10/24 23:00 112 H 17 154/110 H 08/10/24 23:00 120 H 18 154/110 H 08/10/24 22:30 123 H 20 158/121 H Pulse Ox O2 Del Method 08/11/24 08:00 97 Room Air 08/11/24 03:01 08/11/24 03:00 98 Room Air 08/11/24 01:54 08/11/24 01:45 08/11/24 01:24 Room Air 08/11/24 01:24 98 Room Air 08/11/24 01:00 97 Room Air 08/11/24 01:00 Room Air 08/11/24 00:30 94 Room Air 08/11/24 00:00 95 Room Air 08/10/24 23:31 96 Room Air 08/10/24 23:00 97 Room Air 08/10/24 23:00 99 Room Air 08/10/24 22:30 99 Room Air Laboratory Results Cardiac Enzymes 08/10/24 08/10/24 08/10/24 Range/Units 17:52 20:11 22:33 AST 30 (13-39) U/L Troponin I High Sens 34.1 H 34.5 H 29.4 H (0-20) pg/ml B-Natriuretic Peptide 825 H (0-100) pg/ml 08/11/24 Range/Units 07:17 AST (13-39) U/L Troponin I High Sens 26.8 H (0-20) pg/ml B-Natriuretic Peptide (0-100) pg/ml Coagulation 08/10/24 08/10/24 Range/Units 17:52 22:33 PT 11.3 (9.0-12.0) Seconds APTT 26 (21-31) Seconds B-Natriuretic Peptide 825 H (0-100) pg/ml Lipids 08/11/24 Range/Units 07:17 Triglycerides 92 (0-150) mg/dl Cholesterol 129 (0-200) mg/dl HDL Cholesterol 30 mg/dl Cholesterol/HDL Ratio 4.3 (0-5) CBC 08/10/24 08/11/24 Range/Units 17:52 07:17 WBC 9.68 8.77 (4.8-10.8) K/ul RBC 4.94 5.12 (4.70-6.10) M/uL Hgb 15.5 16.1 (14.0-18.0) g/dl Hct 43.9 45.7 (42.0-52.0) % Plt Count 294 281 (130-400) K/uL Neut # (Auto) 6.59 H 6.32 (1.40-6.50) K/uL Lymph # (Auto) 2.33 1.74 (1.20-3.40) K/uL [place] # (Auto) 0.53 0.46 (0.11-0.59) K/uL Eos # (Auto) 0.13 0.16 (0.00-0.50) K/uL Baso # (Auto) 0.06 0.06 (0.00-0.20) K/uL Comprehensive Metabolic Panel 08/10/24 08/11/24 Range/Units 17:52 07:17 Sodium 138 141 (136-145) mmol/L Potassium 4.2 3.9 (3.5-5.1) mmol/L Chloride 107 106 (98-107) mmol/L Carbon Dioxide 23 24 (21-32) mmol/L BUN 23 21 (6-23) mg/dl Creatinine 1.24 1.20 (0.6-1.4) mg/dl Glucose 84 88 (70-99(Fasting)) mg/dl Calcium 9.4 9.5 (8.6-10.3) mg/dl AST 30 (13-39) U/L ALT 44 (7-52) U/L Alkaline Phosphatase 62 (34-104) U/L Total Protein 6.4 (6.0-8.3) gm/dl Albumin 4.2 (3.4-5.0) gm/dl Intake and Output 08/10/24 08/11/24 08/11/24 22:59 06:59 14:59 Intake Total 150 / 150 Balance 150 / 150 Intake: IV 100 / 100 Albumin 25% 25 gm In 100 ml @ 100 / 100 50 mls/hr IV ONE ONE Rx#: [id number] Oral 50 / 50 Other: # Unmeasured Voids 2 Weight 91.8 kg 90.9 kg Weight Measurement Method Chair Scale Standing Scale
[2024-08-11] MEDS: FUROSEMIDE INJ 20 MG/2 ML VIAL IV SCH (10:44)
[2024-08-11] MEDS: FUROSEMIDE 40 MG/4 ML VIAL IV SCH ×2 (11:18→20:20)
--- NOTE | 2024-08-11 11:43 | Hospitalist Progress Note ---
Date of Service August 11, 2024 Assessment & Plan (1) CHF (congestive heart failure): Plan: Possible acute on chronic systolic heart failure Elevated troponin Patient presented with chest discomfort, orthopnea and shortness of breath for several days. Chest x-ray on admission reviewed; no acute finding CTA chest on admission shows small bilateral pleural effusion. Heart is moderately enlarged. Formal echocardiogram pending Started on guideline directed medical therapy with metoprolol, Entresto. 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 Genetic testing to be done as outpatient. Lab studies regarding secondary causes of cardiomyopathy ordered including iron studies, serum and urine light chain, TSH and Lyme screening. Full code DVT prophylaxis Lovenox Time spent evaluating patient, direct bedside care, chart review, placing orders, interpretation of diagnostic studies, discussion with consultants, patient, and family members, as well as other required patient management activities is 50 minutes Please note the above document was generated using voice recognition software. It may contain grammatical, syntax or spelling errors. Any formal questions or concerns about the content, text or information contained within the body of this dictation should be directly addressed to the provider for clarification Admission and Anticipated Discharge Date Admission Date: August 10, 2024 Subjective Patient seen and examined at bedside. He reports that he is feeling slightly better compared to yesterday Denies any shortness of breath No significant events overnight Review of Systems Review of Systems: All systems reviewed & are unremarkable except as noted in Subjective Physical Exam Physical Exam: GENERAL: Alert oriented x 3; not in distress. CHEST : Decreased breath sound at bases HEART : Tachycardic, no obvious murmurs ABDOMEN: Some distention, nontender EXTREMITIES : No LE swelling/tenderness, no other conspicuous deformities noted NEUROLOGIC : Coherent, no facial asymmetry, no other gross focality Results & Data Results & Data Vital Signs (Past 12 Hours) Vital Signs Temp Pulse Pulse Resp BP BP Pulse Ox 08/11/24 11:22 36.7 C 120 H 18 136/105 H 96 08/11/24 09:00 99 H 08/11/24 08:00 36.6 C 113 H 16 135/110 H 97 08/11/24 03:01 111 H 126/103 H 08/11/24 03:00 36.8 C 112 H 18 126/103 H 98 08/11/24 01:54 109 H 08/11/24 01:45 113 H 163/86 H 08/11/24 01:24 08/11/24 01:24 36.4 C L 113 H 18 163/86 H 98 08/11/24 01:00 110 H 20 125/96 97 08/11/24 01:00 08/11/24 00:30 104 H 23 126/90 94 08/11/24 00:00 108 H 22 126/98 95 O2 Del Method 08/11/24 11:22 Room Air 08/11/24 09:00 08/11/24 08:00 Room Air 08/11/24 03:01 08/11/24 03:00 Room Air 08/11/24 01:54 08/11/24 01:45 08/11/24 01:24 Room Air 08/11/24 01:24 Room Air 08/11/24 01:00 Room Air 08/11/24 01:00 Room Air 08/11/24 00:30 Room Air 08/11/24 00:00 Room Air
[2024-08-11 11:57] LABS: Ferritin 67.7 ng/ml (8-388)
[2024-08-11] MEDS: METOPROLOL SUCC 25MG EXT REL TAB PO SCH (12:23)
[2024-08-11] MEDS: ASPIRIN 81 MG ECTAB PO SCH (12:23)
[2024-08-11] MEDS: VALSARTAN/SACUBITRIL 26/24MG TAB PO SCH (12:23)
[2024-08-11] MEDS: ACETAMINOPHEN 500 MG TAB PO STA (15:54)
[2024-08-11] MEDS: POTASSIUM CHLORIDE CRTAB 20 MEQ TABCR PO STA (18:05)
--- NOTE | 2024-08-11 22:28 | Electrocardiogram Report ---
Test Reason : Blood Pressure : */* mmHG Vent. Rate : 122 BPM Atrial Rate : 122 BPM P-R Int : 120 ms QRS Dur : 100 ms QT Int : 328 ms P-R-T Axes : 65 16 237 degrees QTcB Int : 467 ms Sinus tachycardia Possible Left atrial enlargement Left ventricular hypertrophy Abnormal ECG When compared with ECG of 19-Nov-2012 00:51, T wave inversion now evident in Inferolateral leads Confirmed by Brian Arreaga ([id number]) on 08/11/2024 10:27:52 PM Referred By: Marshal Jamison Confirmed By: Brian Arreaga
[2024-08-12 06:00] LABS: BUN Creatinine Ratio 14.5 (10-20); Est GFR (African American) 88.6 ml/min; Est GFR (Non-African American) 76.4 ml/min
--- NOTE | 2024-08-12 10:40 | Cardiology Progress Note ---
Date of Service August 12, 2024 Assessment & Plan (1) Acute heart failure with reduced ejection fraction and diastolic dysfunction: (2) Sinus tachycardia: (3) Bilateral pleural effusion: (4) Elevated troponin I level: Plan 33-year-old male with new onset heart failure with reduced ejection fraction. Echocardiogram demonstrating severely reduced LV function. Family history of congestive heart failure in 2 first-degree relatives at young age (brother and father). Continue Toprol-XL 25 mg twice daily in addition to Entresto 24-25 mg twice daily. Consider addition of spironolactone in the next 24 hours pending clinical response and review of repeat lab studies. Continue IV diuresis, Lasix 40 mg twice daily. Monitor fluid balance, daily weight, GFR, and electrolytes. Discussed with nursing staff, quantify urine output. Ischemic evaluation will be performed when patient has improved clinically from a heart failure perspective. Evaluation for secondary causes of cardiomyopathy ordered. Serum iron studies, Lyme screen, and viral panel unremarkable. Serum and urine light chains/electrophoresis pending. Outpatient cardiac MRI and genetic testing post discharge. I spent a total of 50 minutes on the date of service in preparation, delivery, and documentation of the care provided to this patient, excluding any time spent in the performance of separately billed services. Admission and Anticipated Discharge Date Admission Date: August 10, 2024 Subjective 33-year-old male seen and examined at the bedside. Feeling better today. Reports frequent urination after IV Lasix yesterday, however, outputs were not recorded. Heart rate remains elevated. Notes orthopnea overnight over improving. Able to sleep better with head elevated. Chest pressure has resolved. Review of Systems Review of Systems: All systems reviewed & are unremarkable except as noted in Subjective Physical Exam Constitutional: well nourished and + ill appearing; no acute distress Respiratory: normal respiratory effort; no respiratory distress and no retractions Auscultation: + diminished lung sounds (Bases bilateral) and + rales (Bases bilateral); no rhonchi and no wheezes Cardiovascular: Rate/Rhythm: regular rate, regular rhythm and + tachycardic Heart Sounds: normal S1 and normal S2; no murmur Vessels: + JVD and radial pulses present Extremities: no edema Gastrointestinal (Abdomen): Inspection/Auscultation: abdomen normal to inspection and normal bowel sounds; abdomen not distended Percussion/Palpation: abdomen soft; abdomen nontender, no guarding and abdomen not rigid Neurologic: CN's II-XI intact bilaterally and moves all extremities; no focal motor deficits Results & Data Vital Signs (Past 12 Hours) Vital Signs Temp Pulse Pulse Resp BP BP Pulse Ox 08/12/24 10:12 08/12/24 08:55 36.7 C 106 H 20 117/79 98 08/12/24 04:14 36.6 C 110 H 18 113/86 97 08/11/24 23:27 36.6 C 98 H 18 103/84 95 08/11/24 23:08 100 H O2 Del Method 08/12/24 10:12 Room Air 08/12/24 08:55 Room Air 08/12/24 04:14 Room Air 08/11/24 23:27 Room Air 08/11/24 23:08 Laboratory Results Comprehensive Metabolic Panel 08/12/24 Range/Units 05:14 Sodium 142 (136-145) mmol/L Potassium 4.0 (3.5-5.1) mmol/L Chloride 104 (98-107) mmol/L Carbon Dioxide 29 (21-32) mmol/L BUN 18 (6-23) mg/dl Creatinine 1.24 (0.6-1.4) mg/dl Glucose 93 (70-99(Fasting)) mg/dl Calcium 10.0 (8.6-10.3) mg/dl Intake and Output 08/11/24 08/12/24 08/12/24 22:59 06:59 14:59 Intake Total 1050 / 1200 150 / 1200 Balance 1050 / 1200 150 / 1200 Intake: Oral 1050 / 1200 150 / 1200 Other: # Unmeasured Voids 4 3 Weight 92.3 kg Weight Measurement Method Built in [facility]
[2024-08-13 07:37] LABS: Basophils # (auto) 0.08 K/uL (0.00-0.20); Eosinophils # (auto) 0.28 K/uL (0.00-0.50); Eosinophils % (auto) 3.4 %; Hematocrit (blood only) 52.4 % (42.0-52.0); Hemoglobin 18.1 g/dl (14.0-18.0); Immature Granulocytes # (auto) 0.03 K/uL (0.01-0.20); Immature Granulocytes % (auto) 0.4 %; Lymphocytes # (auto) 2.03 K/uL (1.20-3.40); Lymphocytes % (auto) 24.4 %; Mean Corpuscular Hemoglobin 31.2 pg (25.0-34.0); Mean Corpuscular Hgb Conc 34.5 g/dL (32.0-36.0); Mean Corpuscular Volume 90.3 fL (80.0-100.0); Mean Platelet Volume 9.8 fL (9.4-12.4); Monocytes # (auto) 0.78 K/uL (0.11-0.59); Monocytes % (auto) 9.4 %; Neutrophils # (auto) 5.11 K/uL (1.40-6.50); Neutrophils % (auto) 61.4 %; Platelet Count 308 K/uL (130-400); RDW Standard Deviation 42.5 fL (36.4-46.3); White Blood Count 8.31 K/ul (4.8-10.8)
[2024-08-13 08:05] LABS: BUN Creatinine Ratio 17.7 (10-20); Calcium 9.8 mg/dl (8.6-10.3); Creatinine Clr Calc Pharmacy 96.9 ml/min; Est GFR (African American) 83.1 ml/min; Est GFR (Non-African American) 71.7 ml/min; Potassium 3.9 mmol/L (3.5-5.1)
--- NOTE | 2024-08-13 09:08 | Hospitalist Progress Note ---
Date of Service August 13, 2024 Assessment & Plan (1) CHF (congestive heart failure): Plan: Acute on chronic systolic heart failure Elevated troponin Patient presented with chest discomfort, orthopnea and shortness of breath for several days. Chest x-ray on admission reviewed; no acute finding CTA chest on admission shows small bilateral pleural effusion. Heart is moderately enlarged. Echocardiogram showed EF of 15 to 20%; severe global hypokinesis of left ventricle Started on guideline directed medical therapy with metoprolol, Entresto. 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 Genetic testing to be done as outpatient. Lab studies regarding secondary causes of cardiomyopathy ordered including iron studies, serum and urine light chain, TSH and Lyme screening. Possible left heart cath for ischemic evaluation after improvement from heart failure perspective. Outpatient cardiac MRI to be done after discharge Full code DVT prophylaxis Lovenox Please note the above document was generated using voice recognition software. It may contain grammatical, syntax or spelling errors. Any formal questions or concerns about the content, text or information contained within the body of this dictation should be directly addressed to the provider for clarification Admission and Anticipated Discharge Date Admission Date: August 10, 2024 Subjective Patient seen and examined at bedside. Comfortable; not in distress. Reports that he is feeling much better Review of Systems Review of Systems: All systems reviewed & are unremarkable except as noted in Subjective Physical Exam Physical Exam: GENERAL: Alert oriented x 3; not in distress. CHEST : Decreased breath sound at bases HEART : Tachycardic, no obvious murmurs ABDOMEN: Some distention, nontender EXTREMITIES : No LE swelling/tenderness, no other conspicuous deformities noted NEUROLOGIC : Coherent, no facial asymmetry, no other gross focality Results & Data Results & Data Vital Signs (Past 12 Hours) Vital Signs Temp Pulse Pulse Resp BP BP Pulse Ox 08/13/24 08:01 36.8 C 110 H 20 120/93 99 08/13/24 03:41 36.6 C 97 H 17 117/91 96 08/12/24 23:38 36.8 C 95 H 18 110/79 96 08/12/24 22:15 98 H O2 Del Method 08/13/24 08:01 Room Air 08/13/24 03:41 Room Air 08/12/24 23:38 Room Air 08/12/24 22:15
--- NOTE | 2024-08-13 09:09 | Hospitalist Progress Note ---
Date of Service August 12, 2024 Delayed entry Assessment & Plan (1) CHF (congestive heart failure): Plan: Acute on chronic systolic heart failure Elevated troponin Patient presented with chest discomfort, orthopnea and shortness of breath for several days. Chest x-ray on admission reviewed; no acute finding CTA chest on admission shows small bilateral pleural effusion. Heart is moderately enlarged. Echocardiogram showed EF of 15 to 20%; severe global hypokinesis of left ventricle Started on guideline directed medical therapy with metoprolol, Entresto. 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 Genetic testing to be done as outpatient. Lab studies regarding secondary causes of cardiomyopathy ordered including iron studies, serum and urine light chain, TSH and Lyme screening. Possible left heart cath for ischemic evaluation after improvement from heart failure perspective. Outpatient cardiac MRI to be done after discharge Full code DVT prophylaxis Lovenox Please note the above document was generated using voice recognition software. It may contain grammatical, syntax or spelling errors. Any formal questions or concerns about the content, text or information contained within the body of this dictation should be directly addressed to the provider for clarification Admission and Anticipated Discharge Date Admission Date: August 10, 2024 Subjective Patient seen and examined at bedside. Comfortable; not in distress. Denies fever, chills, chest pain, shortness of breath, abdominal pain or urinary symptoms. No significant overnight events Review of Systems Review of Systems: All systems reviewed & are unremarkable except as noted in Subjective Physical Exam Physical Exam: GENERAL: Alert oriented x 3; not in distress. CHEST : Decreased breath sound at bases HEART : Tachycardic, no obvious murmurs ABDOMEN: Some distention, nontender EXTREMITIES : No LE swelling/tenderness, no other conspicuous deformities noted NEUROLOGIC : Coherent, no facial asymmetry, no other gross focality Results & Data Results & Data Vital Signs (Past 12 Hours) Vital Signs Temp Pulse Pulse Resp BP BP Pulse Ox 08/13/24 08:01 36.8 C 110 H 20 120/93 99 08/13/24 03:41 36.6 C 97 H 17 117/91 96 08/12/24 23:38 36.8 C 95 H 18 110/79 96 08/12/24 22:15 98 H O2 Del Method 08/13/24 08:01 Room Air 08/13/24 03:41 Room Air 08/12/24 23:38 Room Air 08/12/24 22:15
[2024-08-13 09:52] LABS: Marijuana Quant, GCMS Urine 106 ng/mL (<5)
[2024-08-13] MEDS: SPIRONOLACTONE 25 MG TAB PO SCH (10:08)
--- NOTE | 2024-08-13 10:34 | Cardiology Progress Note ---
Date of Service August 13, 2024 Assessment & Plan (1) Acute heart failure with reduced ejection fraction and diastolic dysfunction: (2) Sinus tachycardia: (3) Bilateral pleural effusion: (4) Elevated troponin I level: Plan 33-year-old male with new onset heart failure with reduced ejection fraction. Echocardiogram demonstrating severely reduced LV function. Family history of congestive heart failure in 2 first-degree relatives at young age (brother and father). Continue Toprol-XL 25 mg twice daily and Entresto 24-25 mg twice daily. Add spironolactone today. Volume status improving. Reduce furosemide to 40 mg daily. Monitor fluid balance, daily weight (standing scale), GFR, and electrolytes. Sodium restriction advised. Cardiac catheterization Thursday for evaluation of coronary anatomy and assessment of intracardiac filling pressure. Discussed need for LifeVest at discharge with both patient and his significant other. Patient agreeable. Evaluation for secondary causes of cardiomyopathy ordered. Serum iron studies, Lyme screen, and viral panel unremarkable. Urine and serum light chains/electrophoresis pending. Outpatient cardiac MRI and genetic testing post discharge. Admission and Anticipated Discharge Date Admission Date: August 10, 2024 Subjective 34-year-old male seen examined the bedside. Accurate I's/O's have not been recorded, however, weight is down 14 pounds since admission. Orthopnea significantly improved. Able to sleep better last night. Notes mild reduction in resting heart rate to the 90s. Denies chest pain or heaviness. Tolerating medications at this time. Review of Systems Review of Systems: All systems reviewed & are unremarkable except as noted in Subjective Physical Exam Constitutional: well nourished and + ill appearing; no acute distress Respiratory: normal respiratory effort; no respiratory distress and no retractions Auscultation: + diminished lung sounds (Bases bilateral); no rales (Bases bilateral), no rhonchi and no wheezes Cardiovascular: Rate/Rhythm: regular rate, regular rhythm and + tachycardic Heart Sounds: normal S1 and normal S2; no murmur Vessels: radial pulses present; no JVD Extremities: no edema Gastrointestinal (Abdomen): Inspection/Auscultation: abdomen normal to inspection and normal bowel sounds; abdomen not distended Perc ussion/Palpation: abdomen soft; abdomen nontender, no guarding and abdomen not rigid Neurologic: CN's II-XI intact bilaterally and moves all extremities; no focal motor deficits Results & Data Vital Signs (Past 12 Hours) Vital Signs Temp Pulse Resp BP BP Pulse Ox O2 Del Method 08/13/24 08:01 36.8 C 110 H 20 120/93 99 Room Air 08/13/24 03:41 36.6 C 97 H 17 117/91 96 Room Air 08/12/24 23:38 36.8 C 95 H 18 110/79 96 Room Air Laboratory Results CBC 08/13/24 Range/Units 07:16 WBC 8.31 (4.8-10.8) K/ul RBC 5.80 (4.70-6.10) M/uL Hgb 18.1 H (14.0-18.0) g/dl Hct 52.4 H (42.0-52.0) % Plt Count 308 (130-400) K/uL Neut # (Auto) 5.11 (1.40-6.50) K/uL Lymph # (Auto) 2.03 (1.20-3.40) K/uL [place] # (Auto) 0.78 H (0.11-0.59) K/uL Eos # (Auto) 0.28 (0.00-0.50) K/uL Baso # (Auto) 0.08 (0.00-0.20) K/uL Comprehensive Metabolic Panel 08/13/24 Range/Units 07:16 Sodium 137 (136-145) mmol/L Potassium 3.9 (3.5-5.1) mmol/L Chloride 100 (98-107) mmol/L Carbon Dioxide 30 (21-32) mmol/L BUN 23 (6-23) mg/dl Creatinine 1.30 (0.6-1.4) mg/dl Glucose 89 (70-99(Fasting)) mg/dl Calcium 9.8 (8.6-10.3) mg/dl Intake and Output 08/12/24 08/13/24 08/13/24 22:59 06:59 14:59 Intake Total 300 / 1260 240 / 1260 Output Total 950 / 950 Balance 300 / 1259 240 / 1259 -950 / -950 Intake: Oral 300 / 1260 240 / 1260 Output: Urine 950 / 950 Other: # Unmeasured Voids 2 3 Weight 105.8 kg 85.6 kg Weight Measurement Method Standing Scale Standing Scale Patient Weight 08/14/24 06:59 Weight 85.6 kg
[2024-08-13] MEDS: POTASSIUM CHLORIDE CRTAB 20 MEQ TABCR PO STA (10:52)
[2024-08-14 07:30] LABS: BUN Creatinine Ratio 26.7 (10-20); Calcium 9.5 mg/dl (8.6-10.3); Creatinine Clr Calc Pharmacy 98.5 ml/min; Est GFR (African American) 95.4 ml/min; Est GFR (Non-African American) 82.3 ml/min; Potassium 4.1 mmol/L (3.5-5.1)
--- NOTE | 2024-08-14 08:05 | Hospitalist Progress Note ---
Date of Service August 14, 2024 Assessment & Plan (1) CHF (congestive heart failure): Plan: Acute on chronic systolic heart failure Elevated troponin Patient presented with chest discomfort, orthopnea and shortness of breath for several days. Chest x-ray on admission reviewed; no acute finding CTA chest on admission shows small bilateral pleural effusion. Heart is moderately enlarged. Echocardiogram showed EF of 15 to 20%; severe global hypokinesis of left ventricle Started on guideline directed medical therapy with metoprolol, Entresto and spironolactone Treated With IV diuretic with Lasix. 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 Genetic testing to be done as outpatient. Iron studies, TSH and Lyme screen time within normal limits. Serum and urine light chains pending. Will need LifeVest at discharge N.p.o. from midnight. Possible left heart cath for ischemic evaluation after improvement from heart failure perspective. Outpatient cardiac MRI to be done after discharge Full code DVT prophylaxis Lovenox Please note the above document was generated using voice recognition software. It may contain grammatical, syntax or spelling errors. Any formal questions or concerns about the content, text or information contained within the body of this dictation should be directly addressed to the provider for clarification Admission and Anticipated Discharge Date Admission Date: August 10, 2024 Subjective Patient seen and examined at bedside. Comfortable; not in distress. Denies fever, chills, chest pain, shortness of breath, abdominal pain or urinary symptoms. No significant overnight events Review of Systems Review of Systems: All systems reviewed & are unremarkable except as noted in Subjective Physical Exam Physical Exam: GENERAL: Alert oriented x 3; not in distress. CHEST : Bilateral vesicular breath sounds; no added sound HEART : Tachycardic, no obvious murmurs ABDOMEN: Some distention, nontender EXTREMITIES : No LE swelling/tenderness, no other conspicuous deformities noted NEUROLOGIC : Coherent, no facial asymmetry, no other gross focality Results & Data Results & Data Vital Signs (Past 12 Hours) Vital Signs Temp Pulse Pulse Resp BP Pulse Ox O2 Del Method 08/14/24 02:50 36.6 C 65 16 99/65 L 95 Room Air 08/13/24 22:53 102 H 08/13/24 22:36 36.6 C 89 16 95/61 L 97 Room Air
[2024-08-14] MEDS: METOPROLOL SUCC 50MG EXT REL TAB PO SCH (09:47)
--- NOTE | 2024-08-14 10:16 | Cardiology Progress Note ---
Date of Service August 14, 2024 Assessment & Plan (1) Acute heart failure with reduced ejection fraction and diastolic dysfunction: (2) Sinus tachycardia: (3) Bilateral pleural effusion: (4) Elevated troponin I level: Plan 33-year-old male with new onset heart failure with reduced ejection fraction. Echocardiogram demonstrating severely reduced LV function. Family history of congestive heart failure in 2 first-degree relatives at young age (brother and father). Titrate Toprol-XL to 50 mg in the morning, 25 mg in the evening. Continue Entresto 24-25 mg twice daily. Spironolactone added 08/13/2024. Add Jardiance as outpatient. Volume status improving. Hold IV Lasix. Monitor fluid balance, daily weight (standing scale), GFR, and electrolytes. Sodium restriction advised. N.p.o. except medications after midnight for cardiac catheterization in AM. Patient agreeable to LifeVest placement at discharge. Evaluation for secondary causes of cardiomyopathy ordered. Serum iron studies, Lyme screen, and viral panel unremarkable. Urine and serum light chains/electrophoresis pending. Outpatient cardiac MRI and genetic testing post discharge. Admission and Anticipated Discharge Date Admission Date: August 10, 2024 Subjective 34-year-old male seen and examined at the bedside. Feeling better today. Orthopnea has resolved. Weight is down 14 pounds since admission. Renal function remains stable. Heart rate in the 90s at rest, 80s during sleep. Review of Systems Review of Systems: All systems reviewed & are unremarkable except as noted in Subjective Physical Exam Constitutional: well nourished and + ill appearing; no acute distress Respiratory: normal respiratory effort; no respiratory distress and no retractions Auscultation: + diminished lung sounds (Bases bilateral); no rales (Bases bilateral), no rhonchi and no wheezes Cardiovascular: Rate/Rhythm: regular rate, regular rhythm and + tachycardic Heart Sounds: normal S1 and normal S2; no murmur Vessels: radial pulses present; no JVD Extremities: no edema Gastrointestinal (Abdomen): Inspection/Auscultation: abdomen normal to inspection and normal bowel sounds; abdomen not distended Percussion/Palpation: abdomen soft; abdomen nontender, no guarding and abdomen not rigid Neurologic: CN's II-XI intact bilaterally and moves all extremities; no focal motor deficits Results & Data Vital Signs (Past 12 Hours) Vital Signs Temp Pulse Pulse Resp BP Pulse Ox O2 Del Method 08/14/24 08:12 36.6 C 79 18 114/69 98 Room Air 08/14/24 02:50 36.6 C 65 16 99/65 L 95 Room Air 08/13/24 22:53 102 H 08/13/24 22:36 36.6 C 89 16 95/61 L 97 Room Air Laboratory Results Comprehensive Metabolic Panel 08/14/24 Range/Units 06:24 Sodium 139 (136-145) mmol/L Potassium 4.1 (3.5-5.1) mmol/L Chloride 103 (98-107) mmol/L Carbon Dioxide 29 (21-32) mmol/L BUN 31 H (6-23) mg/dl Creatinine 1.16 (0.6-1.4) mg/dl Glucose 90 (70-99(Fasting)) mg/dl Calcium 9.5 (8.6-10.3) mg/dl Intake and Output 08/13/24 08/14/24 08/14/24 22:59 06:59 14:59 Intake Total 240 / 1520 200 / 1520 Balance 240 / 569 200 / 569 Intake: Oral 240 / 1520 200 / 1520 Other: # Unmeasured Voids 3 4 Weight 86.1 kg Weight Measurement Method Standing Scale
[2024-08-14] MEDS: METOPROLOL SUCC 25MG EXT REL TAB PO SCH (20:43)
[2024-08-15 07:33] LABS: BUN Creatinine Ratio 22.3 (10-20); Calcium 9.6 mg/dl (8.6-10.3); Creatinine Clr Calc Pharmacy 102.3 ml/min; Est GFR (African American) 99.5 ml/min; Est GFR (Non-African American) 85.8 ml/min; Potassium 4.1 mmol/L (3.5-5.1)
--- NOTE | 2024-08-15 10:37 | Cardiology Progress Note ---
Date of Service August 15, 2024 Assessment & Plan (1) Acute heart failure with reduced ejection fraction and diastolic dysfunction: (2) Sinus tachycardia: (3) Bilateral pleural effusion: (4) Elevated troponin I level: Plan 33-year-old male with new onset heart failure with reduced ejection fraction. Echocardiogram demonstrating severely reduced LV function. Family history of congestive heart failure in 2 first-degree relatives at young age (brother and father). Titrate Toprol-XL to 50 mg in the morning, 25 mg in the evening. Continue Entresto 24-25 mg twice daily. Spironolactone added 08/13/2024. Add Jardiance as outpatient. Volume status improving. Hold IV Lasix. Monitor fluid balance, daily weight (standing scale), GFR, and electrolytes. Sodium restriction advised. N.p.o. except medications after midnight for cardiac catheterization in AM. Patient agreeable to LifeVest placement at discharge. Evaluation for secondary causes of cardiomyopathy ordered. Serum iron studies, Lyme screen, and viral panel unremarkable. Urine and serum light chains/electrophoresis pending. Outpatient cardiac MRI and genetic testing post discharge. 08/15/2024 No acute issues overnight. Upwardly titrating GDMT. Increase metoprolol succinate to 50 mg twice per day Cardiac catheterization this morning coronary angiography possible right heart Procedure and risks explained in detail the patient and informed consent obtained Admission and Anticipated Discharge Date Admission Date: August 10, 2024 Subjective Patient seen and examined, chart, telemetry reviewed. No acute dyspnea or cardiac complaints Heart rate still trending high, sinus and sinus tachycardia No arrhythmias otherwise No dizziness or lightheadedness no chest pain Review of Systems Review of Systems: All systems reviewed & are unremarkable except as noted in Subjective Physical Exam Constitutional: well nourished; no acute distress Neck: trachea midline, no thyromegaly Respiratory: normal respiratory effort; no respiratory distress and no retractions Auscultation: no rales (Bases bilateral), no rhonchi and no wheezes Cardiovascular: Rate/Rhythm: regular rate, regular rhythm and + tachycardic Heart Sounds: normal S1 and normal S2; no murmur Vessels: radial pulses present; no JVD Extremities: no edema Gastrointestinal (Abdomen): Inspection/Auscultation: abdomen normal to inspection and normal bowel sounds; abdomen not distended Percussion/Palpation: abdomen soft; abdomen nontender, no guarding and abdomen not rigid Musculoskeletal: no cyanosis or clubbing, extremities motor strength 5/5 Neurologic: CN's II-XI intact bilaterally and moves all extremities; no focal motor deficits Results & Data Vital Signs (Past 12 Hours) Vital Signs Temp Pulse Resp BP BP Pulse Ox O2 Del Method 08/15/24 08:15 36.7 C 105 H 17 105/73 98 Room Air 08/15/24 02:41 36.4 C L 88 16 108/68 99 Room Air 08/14/24 22:52 36.7 C 90 17 104/65 98 Room Air Laboratory Results Laboratory Results - last 24 hr 08/15/24 06:36 Sodium 138 Potassium 4.1 Chloride 104 Carbon Dioxide 26 Anion Gap 8 BUN 25 H Creatinine 1.12 Est Cr Clr Drug Dosing 102.3 Est GFR ( Amer) 99.5 Est GFR (Non-Af Amer) 85.8 BUN/Creatinine Ratio 22.3 H Glucose 94 Calcium 9.6
--- NOTE | 2024-08-15 10:42 | Pre Anesthesia Assessment ---
Date of Service August 15, 2024 Pre Sedation Assessment Vital Signs Temp Pulse Pulse Resp BP BP Pulse Ox 08/15/24 08:15 36.7 C 105 H 17 105/73 98 08/15/24 02:41 36.4 C L 88 16 108/68 99 08/14/24 22:52 36.7 C 90 17 104/65 98 08/14/24 21:54 103 H 08/14/24 19:57 36.9 C 96 H 19 108/73 99 08/14/24 15:23 36.4 C L 101 H 18 116/73 98 08/14/24 12:38 36.6 C 111 H 18 120/81 98 O2 Del Method 08/15/24 08:15 Room Air 08/15/24 02:41 Room Air 08/14/24 22:52 Room Air 08/14/24 21:54 08/14/24 19:57 Room Air 08/14/24 15:23 Room Air 08/14/24 12:38 Room Air Cardiovascular + regular rate, + regular rhythm and + tachycardic + S1 normal and + S2 normal no JVD no edema Respiratory normal respiratory effort, lungs clear to auscultation Pre-Sedation Airway Assessment Smoking Status: Current every day smoker Mallampati Class: III ASA: ASA3 NPO Status Date of Last Intake of Fluids: 08/15/24 Time of Last Intake of Fluids: 09:00 Last Oral Intake of Fluids Comment: Sips with meds Date of Last Intake of Solid Food: 08/14/24 Procedure Planning Contraindications for Sedation: none Current Medications Reviewed: Yes Notes The planned sedation has been discussed with the patient. Informed Consent was obtained. I have identified the patient, determined the appropriateness of sedation and have assessed the patient immediately prior to the procedure. All medicine(s) and interventions are by my order.
[2024-08-15] MEDS: niCARdipine HCL INJ 2.5 MG/ML 10 ML AMP ONE (11:49)
[2024-08-15] MEDS: fentaNYL citrate PF 100 MCG/2 ML VIAL ONE (12:19)
[2024-08-15] MEDS: HEPARIN (PORCINE) 1000 UNIT/ML 10 ML (CATH LAB USE ONLY) ONE (12:19)
[2024-08-15] MEDS: MIDAZOLAM HCL 1 MG/ML 2ML VIAL ONE ×2 (12:19→12:21)
[2024-08-15] MEDS: NITROGLYCERIN/D5W 100MCG/ML 20ML SYR ONE (12:20)
[2024-08-15] MEDS: OPTIRAY 350 ONE (12:20)
--- NOTE | 2024-08-15 12:24 | Post Anesthesia Assessment ---
Date of Service August 15, 2024 Post Sedation Assessment Vital Signs Temp Pulse Pulse Pulse Resp BP BP 08/15/24 11:50 08/15/24 11:03 117 H 14 96/79 L 08/15/24 08:15 98.1 F 105 H 17 105/73 08/15/24 02:41 97.5 F L 88 16 108/68 08/14/24 22:52 98.1 F 90 17 104/65 08/14/24 21:54 103 H 08/14/24 19:57 98.4 F 96 H 19 108/73 08/14/24 15:23 97.5 F L 101 H 18 116/73 08/14/24 12:38 97.9 F 111 H 18 120/81 Pulse Ox O2 Del Method 08/15/24 11:50 Room Air 08/15/24 11:03 100 Room Air 08/15/24 08:15 98 Room Air 08/15/24 02:41 99 Room Air 08/14/24 22:52 98 Room Air 08/14/24 21:54 08/14/24 19:57 99 Room Air 08/14/24 15:23 98 Room Air 08/14/24 12:38 98 Room Air Recovery Score Activity: Moves 4 extremities Respiration: Deep Breath/Cough Circulation: +/-20% PreAnes Value Consciousness: Fully Awake Oxygen Saturation: O2 needed for >90% Discharge Sedation Level of Care: Fast Track Phase II Post Sedation Plan On clinical assessment, the patient appears to have tolerated the sedation without complications. Patient is recovering as anticipated. Patient will continue to be monitored by nursing and may be discharged when sedation discharge criteria are met per below protocol. Upon Completions of procedure up to 15 minutes continue every 5 minute vital signs and the P.A.R. score; then discharge to a Phase I or Fast Track to Phase II per the following guidelines: * Discharge Patient to appropriate Phase II area if PAR is 8 or greater or return to pre- procedure baseline. The post - procedure orders will be as directed. * If PAR score is less than 8 or not return to pre-procedure baseline then patient will follow Phase I monitoring till PAR is reached for Phase II. The Phase I may be done in procedure room or may call to secure a Phase I area. * If naloxone or flumazenil are used for reversal, hold in Phase I for continued monitoring from when last reversal dose was given for a minimum of 60 minutes or longer pending the nurse and/or physician discretion of patient condition before discharge to Phase II. Please call the Sedation Physician to re-evaluate and complete post-note for discharge to Phase II area. Do NOT discharge from procedure sedation or Phase 1 until post- sedation evaluation note is complete by procedure /sedation MD Sedation Discharge Instructions to be given to the patient at discharge to home.
--- NOTE | 2024-08-15 12:25 | Cardiac Catheterization ---
Cardiac Cath Procedure Brief Procedure Date August 15, 2024 Pre-Procedure Diagnosis Pre-Procedure Diagnosis: Angina and Positive Stress Test AUC Score AUC Score: 7 Post-Procedure Diagnosis Post-Procedure Diagnosis: Normal Coronary Arteries and Decreased LV Systolic Function Procedure(s) Performed Procedure(s) Performed: Coronary Angiography and Left Heart Cath Shoe Shiner Rigo Pandya MD Cash Room Clerk(s) Mariam Bahena Estimated Blood Loss Estimated Blood Loss: <15cc Medication(s) Medication(s): Fentanyl (12.5 mcg IV x 2), Heparin (5000 units IV), Lidocaine 1% (Local infiltration access site), Nicardipine (250 mcg intra-arterial after arterial sheath insertion) and Versed (1 mg IV x 2) Preliminary Findings Impression: Normal coronaries, left dominant anatomy Proximal LAD spasm confirmed by ultrasound Mildly elevated left end-diastolic pressure Severe LV dysfunction by echocardiography Recommendations Recommendations: Medical Therapy and/or Counseling Specimens Specimens: None Fluids (cc crystalloids) Fluids (cc crystalloids): 78 Anesthesia Start time: 1127, stop time: 1204 Procedural Complication(s) None Disposition PCU
--- NOTE | 2024-08-15 12:27 | Cardiac Catheterization ---
[facility] Data: Physical Therapy Aid Cardiac Status Clinical evaluation leading to the procedure CAD Presenation: Sx unlikely to be ischemic Diagnostic Physicians Name: Noble Wilkinson MD Closure Device Recommendations: Medical Therapy and/or Counseling Cardiac Cath Procedure Full Procedure Date August 15, 2024 Pre-Procedure Diagnosis Pre-Procedure Diagnosis: Cardiomyopathy AUC Score AUC Score: 7 Post-Procedure Diagnosis Post-Procedure Diagnosis: Normal Coronary Arteries Procedure(s) Performed Procedure(s) Performed: Coronary Angiography and IVUS Lunchroom Operator Noble Wilkinson MD Attending Urologist(s) Showers Estimated Blood Loss Estimated Blood Loss: 5 Medication(s) Medication(s): Fentanyl, Heparin, Nicardipine, Nitroglycerin and Versed Summary of Findings IVUS of LAD For full details of patient's coronary angiography please see cath report dictated by Dr. Pandya. Briefly, patient found to have possible proximal LAD stenosis versus vasospasm. Decision to further evaluate with IVUS. Procedure: Left main cannulated with EBU 3.5 guide [place] blue navigated across proximal LAD into distal vessel Sheikh IVUS catheter placed to mid LAD Pullback revealed no significant atherosclerotic plaque in proximal, ostial LAD or in short left main. Catheter/wire removed and post procedure angiography revealed no apparent complications. Spasm appeared improved post vasodilators. Summary: 1. No significant proximal LAD or left main coronary artery disease on IVUS Recommendations: Continued GDMT for nonischemic cardiomyopathy per Dr. Pandya Hemodynamics Rest Ao:: 91/73/81 Final Ao: 105/71/86 LV: -- Recommendations Recommendations: Medical Therapy and/or Counseling Specimens Specimens: None Radiation Exposure (mGy) 505 Contrast (mls) 40 Anesthesia Moderate [id number] Procedural Complication(s) None Disposition PCU I attest to the content of the Intraoperative Record and any orders documented therein. Any exceptions are noted below. [facility] Card Cath Procedure Codes Therapeutic Services & Ancillary Procedure 1: Cardiovascular Tx and Anc Procedures: 27073 IV Ultrasound (Coronary or Graft) Moderate Sedation Procedure 1: Sedation/Anesthesia: 74479 Mod Sedation by the same physician; Ea [id number] Minutes PG Care Time/CCT Total # of Minutes Spent Total Time Spent with Patient: Total time spent is greater than 50% in coordination of care (as documented) at patient's floor/unit and/or counseling patient:
--- NOTE | 2024-08-15 12:31 | Cardiac Catheterization ---
Cardiac Cath Procedure Full Procedure Date August 15, 2024 Pre-Procedure Diagnosis Pre-Procedure Diagnosis: Cardiomyopathy AUC Score AUC Score: 7 Post-Procedure Diagnosis Post-Procedure Diagnosis: Normal Coronary Arteries and Decreased LV Systolic Function Procedure(s) Performed Procedure(s) Performed: Coronary Angiography and Left Heart Cath Edge Bander Operator Rigo Pandya MD Elementary Secretary(s) Mariam Bahena Estimated Blood Loss Estimated Blood Loss: <15cc Medication(s) Medication(s): Fentanyl (12.5 mcg IV x 2), Heparin (5000 units IV), Lidocaine 1% (Local infiltration access site), Nicardipine (250 mcg intra-arterial after arterial sheath insertion) and Versed (1 mg IV x 2) Summary of Findings Impression: Normal coronaries, left dominant anatomy Proximal LAD spasm confirmed by ultrasound Mildly elevated left end-diastolic pressure Severe LV dysfunction by echocardiography Procedure: Left heart catheterization, coronary angiography via right radial access with ultrasound guidance Catheters 6 [place] long glide sheath, 5 [place], 5 [place] straight pigtail Procedure notes: Hyperventilation during procedure with proximal left anterior descending spasm observed. Coronary ultrasound performed under separate procedu re with no evidence of obstruction or atherosclerotic significant lesion. Coronary angiography: Left dominant coronary anatomy Left anterior descending: Type III distribution giving rise to 2 large septal branches and 3 modest caliber diagonal branches before coursing to beyond the apex. Proximal left anterior descending spasm during procedure Left circumflex: Large-caliber vessel dominant distribution. It gives rise to a trivial first marginal branch a multi branching obtuse marginal and along the AV groove a large posterolateral branch a small posterolateral branch and the posterior descending artery. There is no disease Right coronary artery: Trivial nondominant vessel consisting of 3 right ventricular branch LV angiography: Not performed LVEDP 17-20 Hemodynamics Rest Ao:: 91/73/81 Final Ao: 105/71/86 LV: 95/3/17 Recommendations Recommendations: Medical Therapy and/or Counseling Specimens Specimens: None Radiation Exposure (mGy) 505 Contrast (mls) 40 Fluids (cc crystalloids) Fluids (cc crystalloids): 78 Anesthesia Start time: 1127, stop time: 1204 Procedural Complication(s) None Disposition PCU I attest to the content of the Intraoperative Record and any orders documented therein. Any exceptions are noted below. [facility] Data: Data Typist Cardiac Status Clinical evaluation leading to the procedure 34-year-old male presented with signs and symptoms of congestive heart failure with severe diffuse LV dysfunction present on echocardiography CAD Presenation: Sx unlikely to be ischemic Anginal Classification: No Symptoms Heart Failure: NYHA Class: CCS III Cardiogenic Shock within 24 Hours: No Cardiac Arrest within 24 Hours: No Imaging Studies Past 6 Months: Yes Stress Studies Past 6 Months: No Standard Exercise Test: No Stress Echocardiogram: No Stress Testing w/SPECT MPI: No Cardiac CTA: No Coronary Anatomy Dominant: Left Left Main (% Stenosis): Normal LAD (% Stenosis): Normal D1 (% Stenosis): Normal D2 (% Stenosis): Normal D3 (% Stenosis): Normal Circumflex (% Stenosis): Normal OM1 (% Stenosis): Normal OM2 (% Stenosis): Normal L PL1 (% Stenosis): Normal L PL2 (% Stenosis): Normal L PDA (% Stenosis): Normal RCA (% Stenosis): Normal Left Ventricular Angiography EF (%): N/A Diagnostic Physicians Name: Rigo Pandya MD Status: Urgent Closure Device Percutaneous Entry Location: Radial Closure Device: Radial Band Recommendations: Medical Therapy and/or Counseling
--- NOTE | 2024-08-15 12:36 | Post Anesthesia Assessment ---
Date of Service August 15, 2024 Post Sedation Assessment Vital Signs Temp Pulse Pulse Pulse Resp BP BP 08/15/24 12:31 102 H 14 104/75 08/15/24 11:50 08/15/24 11:03 117 H 14 96/79 L 08/15/24 08:15 36.7 C 105 H 17 105/73 08/15/24 02:41 36.4 C L 88 16 108/68 08/14/24 22:52 36.7 C 90 17 104/65 08/14/24 21:54 103 H 08/14/24 19:57 36.9 C 96 H 19 108/73 08/14/24 15:23 36.4 C L 101 H 18 116/73 08/14/24 12:38 36.6 C 111 H 18 120/81 Pulse Ox O2 Del Method 08/15/24 12:31 96 Room Air 08/15/24 11:50 Room Air 08/15/24 11:03 100 Room Air 08/15/24 08:15 98 Room Air 08/15/24 02:41 99 Room Air 08/14/24 22:52 98 Room Air 08/14/24 21:54 08/14/24 19:57 99 Room Air 08/14/24 15:23 98 Room Air 08/14/24 12:38 98 Room Air Recovery Score Activity: Moves 4 extremities Respiration: Deep Breath/Cough Circulation: +/-20% PreAnes Value Consciousness: Fully Awake Oxygen Saturation: > 92% On Room Air Post Anesthesia Score: 10 Discharge Sedation Level of Care: Fast Track Phase II Post Sedation Plan On clinical assessment, the patient appears to have tolerated the sedation without complications. Patient is recovering as anticipated. Patient will continue to be monitored by nursing and may be discharged when sedation discharge criteria are met per below protocol. Upon Completions of procedure up to 15 minutes continue every 5 minute vital signs and the P.A.R. score; then discharge to a Phase I or Fast Track to Phase II per the following guidelines: * Discharge Patient to appropriate Phase II area if PAR is 8 or greater or return to pre- procedure baseline. The post - procedure orders will be as directed. * If PAR score is less than 8 or not return to pre-procedure baseline then patient will follow Phase I monitoring till PAR is reached for Phase II. The Phase I may be done in procedure room or may call to secure a Phase I area. * If naloxone or flumazenil are used for reversal, hold in Phase I for continued monitoring from when last reversal dose was given for a minimum of 60 minutes or longer pending the nurse and/or physician discretion of patient condition before discharge to Phase II. Please call the Sedation Physician to re-evaluate and complete post-note for discharge to Phase II area. Do NOT discharge from procedure sedation or Phase 1 until post- sedation evaluation note is complete by procedure /sedation MD Sedation Discharge Instructions to be given to the patient at discharge to home.
--- NOTE | 2024-08-15 12:37 | Hospitalist Progress Note ---
Date of Service August 15, 2024 Assessment & Plan (1) CHF (congestive heart failure): Plan: Acute on chronic systolic heart failure Elevated troponin Patient presented with chest discomfort, orthopnea and shortness of breath for several days. Chest x-ray on admission reviewed; no acute finding CTA chest on admission shows small bilateral pleural effusion. Heart is moderately enlarged. Echocardiogram showed EF of 15 to 20%; severe global hypokinesis of left ventricle Underwent cardiac cath on 08/15; normal coronaries, left dominant anatomic. Proximal LAD spasm confirmed by ultrasound. Severe LV dysfunction by echocardiogram. Started on guideline directed medical therapy with metoprolol, Entresto and spironolactone Treated With IV diuretic with Lasix. 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 Genetic testing to be done as outpatient. Iron studies, TSH and Lyme screen time within normal limits. Serum and urine light chains pending. Will need LifeVest at discharge Outpatient cardiac MRI to be done after discharge Full code DVT prophylaxis Lovenox Please note the above document was generated using voice recognition software. It may contain grammatical, syntax or spelling errors. Any formal questions or concerns about the content, text or information contained within the body of this dictation should be directly addressed to the provider for clarification Admission and Anticipated Discharge Date Admission Date: August 10, 2024 Subjective Patient seen and examined at bedside. Comfortable; not in distress. Denies fever, chills, chest pain, shortness of breath, abdominal pain or urinary symptoms. No significant overnight events Review of Systems Review of Systems: All systems reviewed & are unremarkable except as noted in Subjective Physical Exam 2 Physical Exam: GENERAL: Alert oriented x 3; not in distress. CHEST : Bilateral vesicular breath sounds; no added sound HEART : Tachycardic, no obvious murmurs ABDOMEN: Some distention, nontender EXTREMITIES : No LE swelling/tenderness, no other conspicuous deformities noted NEUROLOGIC : Coherent, no facial asymmetry, no other gross focality Results & Data Results & Data Vital Signs (Past 12 Hours) Vital Signs Temp Pulse Pulse Resp BP BP Pulse Ox 08/15/24 12:31 102 H 14 104/75 96 08/15/24 11:50 08/15/24 11:03 117 H 14 96/79 L 100 08/15/24 08:15 36.7 C 105 H 17 105/73 98 08/15/24 02:41 36.4 C L 88 16 108/68 99 O2 Del Method 08/15/24 12:31 Room Air 08/15/24 11:50 Room Air 08/15/24 11:03 Room Air 08/15/24 08:15 Room Air 08/15/24 02:41 Room Air
[2024-08-15] MEDS: SODIUM CHLORIDE 0.9% 1,000 ML IV SCH (13:11)
[2024-08-15 16:38] LABS: Kappa Light Chain, Free, Urine 2.32 mg/L (<=32.90); Lambda Light Chain, Free, Ur <0.74 mg/L (<=3.79)
[2024-08-15] MEDS: METOPROLOL SUCC 50MG EXT REL TAB PO SCH (21:05)
[2024-08-16 06:26] LABS: Basophils # (auto) 0.06 K/uL (0.00-0.20); Basophils % (auto) 0.8 %; Eosinophils # (auto) 0.24 K/uL (0.00-0.50); Eosinophils % (auto) 3.3 %; Hematocrit (blood only) 48.3 % (42.0-52.0); Hemoglobin 16.4 g/dl (14.0-18.0); Immature Granulocytes # (auto) 0.02 K/uL (0.01-0.20); Immature Granulocytes % (auto) 0.3 %; Lymphocytes # (auto) 1.67 K/uL (1.20-3.40); Lymphocytes % (auto) 23.2 %; Mean Corpuscular Hemoglobin 31.3 pg (25.0-34.0); Mean Corpuscular Volume 92.2 fL (80.0-100.0); Monocytes % (auto) 8.3 %; Neutrophils % (auto) 64.1 %; Platelet Count 234 K/uL (130-400); RDW Coefficient of Variation 13.2 % (11.5-14.5); RDW Standard Deviation 44.6 fL (36.4-46.3); Red Blood Count 5.24 M/uL (4.70-6.10); White Blood Count 7.19 K/ul (4.8-10.8)
[2024-08-16 06:51] LABS: BUN Creatinine Ratio 19.6 (10-20); Calcium 9.1 mg/dl (8.6-10.3); Creatinine Clr Calc Pharmacy 113.1 ml/min; Est GFR (African American) 111.4 ml/min; Est GFR (Non-African American) 96.1 ml/min; Potassium 4.7 mmol/L (3.5-5.1)
[2024-08-16 09:41] LABS: Albumin 4.3 g/dL (3.8-4.8); Alpha 1 Globulin 0.3 g/dL (0.2-0.3); Alpha 2 Globulin 0.7 g/dL (0.5-0.9); Beta-1-Globulin 0.4 g/dL (0.4-0.6); Beta-2-Globulin 0.4 g/dL (0.2-0.5); Gamma Globulin 0.7 g/dL (0.8-1.7); Monoclonal Protein Band 1 DNR g/dL (NONE DETECTED); Monoclonal Protein Band 2 DNR g/dL (NONE DETECTED); Monoclonal Protein Band 3 DNR g/dL (NONE DETECTED); Total Protein 6.8 g/dL (6.1-8.1)
[2024-08-16] MEDS: METOPROLOL SUCC 25MG EXT REL TAB PO ONE (11:13)
--- NOTE | 2024-08-16 12:25 | Hospitalist Progress Note ---
Date of Service August 16, 2024 Assessment & Plan (1) CHF (congestive heart failure): Plan: Acute on chronic systolic heart failure Elevated troponin Patient presented with chest discomfort, orthopnea and shortness of breath for several days. Chest x-ray on admission reviewed; no acute finding CTA chest on admission shows small bilateral pleural effusion. Heart is moderately enlarged. Echocardiogram showed EF of 15 to 20%; severe global hypokinesis of left ventricle Underwent cardiac cath on 08/15; normal coronaries, left dominant anatomic. Proximal LAD spasm confirmed by ultrasound. Severe LV dysfunction by echocardiogram. Started on guideline directed medical therapy with metoprolol, Entresto and spironolactone. Metoprolol dose titrated up to 75 mg twice a day for better heart rate control Treated With IV diuretic with Lasix. 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 Genetic testing to be done as outpatient. Iron studies, TSH and Lyme screen time within normal limits. Will need LifeVest at discharge Outpatient cardiac MRI to be done after discharge Continue telemonitoring Full code DVT prophylaxis Lovenox Please note the above document was generated using voice recognition software. It may contain grammatical, syntax or spelling errors. Any formal questions or concerns about the content, text or information contained within the body of this dictation should be directly addressed to the provider for clarification Admission and Anticipated Discharge Date Admission Date: August 10, 2024 Subjective Patient seen and examined at bedside. Comfortable; not in distress. Denies fever, chills, chest pain, shortness of breath, abdominal pain or urinary symptoms. No significant overnight events Review of Systems Review of Systems: All systems reviewed & are unremarkable except as noted in Subjective Physical Exam Physical Exam: GENERAL: Alert oriented x 3; not in distress. CHEST : Bilateral vesicular breath sounds; no added sound HEART : Tachycardic, no obvious murmurs ABDOMEN: Some distention, nontender EXTREMITIES : No LE swelling/tenderness, no other conspicuous deformities noted NEUROLOGIC : Coherent, no facial asymmetry, no other gross focality Results & Data Results & Data Vital Signs (Past 12 Hours) Vital Signs Temp Pulse Pulse Resp BP BP Pulse Ox 08/16/24 11:20 36.7 C 108 H 17 104/78 97 08/16/24 08:46 36.7 C 90 18 107/71 97 08/16/24 07:00 84 08/16/24 03:40 36.4 C L 93 H 18 98/63 L 97 O2 Del Method 08/16/24 11:20 Room Air 08/16/24 08:46 Room Air 08/16/24 07:00 08/16/24 03:40 Room Air
--- NOTE | 2024-08-16 14:50 | Cardiology Progress Note ---
Date of Service August 16, 2024 Assessment & Plan (1) Acute heart failure with reduced ejection fraction and diastolic dysfunction: (2) Sinus tachycardia: (3) Bilateral pleural effusion: (4) Elevated troponin I level: Plan 33-year-old male with new onset heart failure with reduced ejection fraction. Echocardiogram demonstrating severely reduced LV function. Family history of congestive heart failure in 2 first-degree relatives at young age (brother and father). Titrate Toprol-XL to 50 mg in the morning, 25 mg in the evening. Continue Entresto 24-25 mg twice daily. Spironolactone added 08/13/2024. Add Jardiance as outpatient. Volume status improving. Hold IV Lasix. Monitor fluid balance, daily weight (standing scale), GFR, and electrolytes. Sodium restriction advised. N.p.o. except medications after midnight for cardiac catheterization in AM. Patient agreeable to LifeVest placement at discharge. Evaluation for secondary causes of cardiomyopathy ordered. Serum iron studies, Lyme screen, and viral panel unremarkable. Urine and serum light chains/electrophoresis pending. Outpatient cardiac MRI and genetic testing post discharge. 08/15/2024 No acute issues overnight. Upwardly titrating GDMT. Increase metoprolol succinate to 50 mg twice per day Cardiac catheterization this morning coronary angiography possible right heart Procedure and risks explained in detail the patient and informed consent obtained 08/16/2024 Slowly trending towards compensation though heart rate still elevated LifeVest fitted today. Ongoing issues include 1. Dilated nonischemic cardiomyopathy with severe LV dysfunction: Patient on guideline directed medical regimen. Metoprolol succinate will be titrated to 100 mg twice per day for heart rate control 2. Acute systolic heart failure: Currently examines as compensated. Will restart oral diuretic with furosemide 20 mg p.o. daily, continue spironolactone, Entresto Admission and Anticipated Discharge Date Admission Date: August 10, 2024 Subjective Patient seen and examined, chart, medications, telemetry reviewed No acute complaints. Heart rates trending lower but still elevated No chest pain or worsening shortness of breath no tachypalpitations or dizziness. Fitted for LifeVest today Review of Systems Review of Systems: All systems reviewed & are unremarkable except as noted in Subjective Physical Exam Constitutional: well nourished; no acute distress ENMT: Mallampati Class: III Neck: trachea midline, no thyromegaly Respiratory: normal respiratory effort, lungs clear to auscultation normal respiratory effort; no respiratory distress and no retractions Auscultation: + diminished lung sounds (Bases bilateral); no rales (Bases bilateral), no rhonchi and no wheezes Cardiovascular: Rate/Rhythm: regular rate, regular rhythm and + tachycardic Heart Sounds: normal S1 and normal S2; no murmur Vessels: radial pulses present; no JVD Extremities: no edema Gastrointestinal (Abdomen): Inspection/Auscultation: abdomen normal to inspection and normal bowel sounds; abdomen not distended Percussion/Palpation: abdomen soft; abdomen nontender, no guarding and abdomen not rigid Musculoskeletal: no cyanosis or clubbing, extremities motor strength 5/5 Neurologic: CN's II-XI intact bilaterally and moves all extremities; no focal motor deficits Results & Data Vital Signs (Past 12 Hours) Vital Signs Temp Pulse Pulse Resp BP BP Pulse Ox 08/16/24 14:25 36.4 C L 109 H 17 109/76 98 08/16/24 13:00 106 H 08/16/24 11:20 36.7 C 108 H 17 104/78 97 08/16/24 08:46 36.7 C 90 18 107/71 97 08/16/24 07:00 84 08/16/24 03:40 36.4 C L 93 H 18 98/63 L 97 O2 Del Method 08/16/24 14:25 Room Air 08/16/24 13:00 08/16/24 11:20 Room Air 08/16/24 08:46 Room Air 08/16/24 07:00 08/16/24 03:40 Room Air Laboratory Results Laboratory Results - last 24 hr 08/11/24 08/12/24 08/16/24 12:25 05:14 06:06 WBC 7.19 RBC 5.24 Hgb 16.4 Hct 48.3 MCV 92.2 MCH 31.3 MCHC 34.0 RDW Std Deviation 44.6 RDW Coeff of Gabriel 13.2 Plt Count 234 MPV 10.0 Immature Gran % (Auto) 0.3 Neut % (Auto) 64.1 Lymph % (Auto) 23.2 Spink % (Auto) 8.3 Eos % (Auto) 3.3 Baso % (Auto) 0.8 Neut # (Auto) 4.60 Lymph # (Auto) 1.67 Spink # (Auto) 0.60 H Eos # (Auto) 0.24 Baso # (Auto) 0.06 Immature Gran # (Auto) 0.02 Sodium 139 Potassium 4.7 Chloride 108 H Carbon Dioxide 26 Anion Gap 5 BUN 20 Creatinine 1.02 Est Cr Clr Drug Dosing 113.1 Est GFR ( Amer) 111.4 Est GFR (Non-Af Amer) 96.1 BUN/Creatinine Ratio 19.6 Glucose 98 Calcium 9.1 Total Protein (PEP) 6.8 Albumin (PEP) 4.3 Gfxky-1-Socolqsls 0.3 Yhxpn-6-Zcydtpxor 0.7 Mutp-2-Kezucyfi 0.4 Lywh-5-Gdyvshvs 0.4 Gamma Globulins 0.7 L Monoclonal Peak 3 DNR Ser Monoclonl Protein DNR Ser Monoclonal Prot 2 DNR PEP Interpretation SEE NOTE U Free [place] Light Ch 2.32 U Free Lambda Light Ch <0.74 U Free [place]/Lambda see note
[2024-08-16] MEDS: FUROSEMIDE 20 MG TAB PO SCH (16:42)
[2024-08-16] MEDS: METOPROLOL SUCC 50MG EXT REL TAB PO SCH (20:49)
[2024-08-16] MEDS ORDERED: METOPROLOL SUCC 50MG EXT REL TAB PO SCH (21:00)
[2024-08-17 09:19] LABS: BUN Creatinine Ratio 18.6 (10-20); Calcium 9.4 mg/dl (8.6-10.3); Creatinine Clr Calc Pharmacy 103.3 ml/min; Est GFR (African American) 98.4 ml/min; Est GFR (Non-African American) 84.9 ml/min; Potassium 4.4 mmol/L (3.5-5.1)
--- NOTE | 2024-08-17 11:05 | Hospitalist Progress Note ---
Date of Service August 17, 2024 Assessment & Plan (1) CHF (congestive heart failure): Plan: Patient presented with chest discomfort, orthopnea and shortness of breath for several days. Acute on chronic systolic heart failure Elevated troponin Cardiomyopathy likely familial. Genetic testing to be done as outpatient --Chest CTA: Lungs are well-inflated. Slight central edema is present as well as a small amount of bibasilar subsegmental atelectasis. There are small bilateral pleural effusions layering posteriorly measuring 1.5 cm on the left and 4 cm on the right. The heart is mildly to moderately enlarged. No pericardial effusion. Consider CHF. The pulmonary arterial tree is well opacified with contrast. No pulmonary embolism is identified. --Echocardiogram showed EF of 15 to 20%; severe global hypokinesis of left ventricle --Underwent cardiac cath on 08/15; normal coronaries, left dominant anatomic. Proximal LAD spasm confirmed by ultrasound. Severe LV dysfunction by echocardiogram. --Started on guideline directed medical therapy with metoprolol, Entresto and spironolactone. -- IV Lasix transition to p.o. Lasix -- Iron studies, TSH and Lyme screen time within normal limits. --Continue LifeVest -- Needs outpatient cardiac MRI as outpatient Plan to discharge home today Needs follow-up with cardiology on discharge Code Status Full code DVT Px: Lovenox SQ Disposition Home Admission and Anticipated Discharge Date Admission Date: August 10, 2024 Subjective Patient is seen and examined at bedside States feeling well today Offers no new complaints Denies any chest pain, dyspnea, nausea, vomiting, abdominal pain, dizziness Discussed with cardiology today Plan to be discharged home today Review of Systems Review of Systems: All systems reviewed & are unremarkable except as noted in Subjective Physical Exam Physical Exam: Physical Exam: Vitals signs as noted above General Appearance:Moderately built and nourished, no apparent distress Head: normocephalic, Atraumatic Eyes: normal inspection, EOMI Neck: supple, Trachea midline Respiratory/Chest: Normal breath sounds, CTA, No accessory muscle use Cardiovascular: S1, S2, No murmur, +Life Vest Abdomen/GI:Soft, Non tender, Bowel sounds present Extremities/Musculoskeletal:normal inspection, no edema Neurologic/Psych:AAOX3, grossly no focal neurological deficits Skin: normal color, warm Results & Data Results & Data Vital Signs (Past 12 Hours) Vital Signs Temp Pulse Pulse Resp BP BP Pulse Ox 10/02/24 07:35 36.2 C L 102 H 18 117/82 100 08/17/24 07:35 87 08/17/24 03:00 36.9 C 86 16 96/63 L 98 08/16/24 23:39 98 H O2 Del Method 08/17/24 07:35 Room Air 08/17/24 07:35 08/17/24 03:00 Room Air 08/16/24 23:39 Laboratory Results [facility] 08/17/24 06:29 Sodium 138 Potassium 4.4 Chloride 105 Carbon Dioxide 26 BUN 21 Creatinine 1.13 Glucose 85 Calcium 9.4
[2024-08-17 11:08] VITALS: BP 120/84; RESP 16; TEMP 97.7; O2SAT 98
--- NOTE | 2024-08-17 11:17 | Discharge Summary ---
Date of Service August 17, 2024 Admission HPI Per Admitting Provider History obtained from patient, family, and records. No significant medical history. 3 days history of persistent pressure-like substernal pain without radiation. SOB from not being able to take a deep breath. Somewhat worse in the supine position. No fever, no chills, no cough symptoms. No headache. No URTI symptoms. No trauma. No fluid retention. Patient/family unaware of sleep apnea symptoms. Highest SBP of 160s documented at the ER. Chest pain improved with nitroglycerin administration at the ER. 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 Admission Exam Per Admitting Provider GENERAL: Slightly uncomfortable, no respiratory distress SKIN: Normal color, warm HEENT: Red rash over both maxillae, pink palpebral conjunctivae, no ptosis, dry buccal mucosa NECK : Supple, no tenderness CHEST : Decreased breath sounds, no tenderness HEART : Tachycardic, no obvious murmurs ABDOMEN: Some distention, nontender EXTREMITIES : No LE swelling/tenderness, no other conspicuous deformities noted NEUROLOGIC : Coherent, no facial asymmetry, no other gross focality Principal Diagnosis Acute heart failure with reduced ejection fraction Discharge Data Allergies Allergy/AdvReac Type Severity Reaction Status Date / Time No Known Allergies Allergy Unverified 08/10/24 17:15 Consultations 08/10/24 22:11 ED Decision to Admit Stat 08/11/24 01:17 Consult Cardiology Routine Procedures Performed Operation Date: 08/15/24 10:00 Actual Procedures s Cineradiography w/Routine Exam - Rigo Pandya MD p Cath, Left with Cors and Vent - Rigo Pandya MD s IVUS Coronary Single Vessel - Noble Wilkinson MD Ordered Studies Laboratory Results WBC 7.19 K/ul (4.8-10.8) 08/16/24 06:06 RBC 5.24 M/uL (4.70-6.10) 08/16/24 06:06 Hgb 16.4 g/dl (14.0-18.0) 08/16/24 06:06 Hct 48.3 % (42.0-52.0) 08/16/24 06:06 MCV 92.2 fL (80.0-100.0) 08/16/24 06:06 MCH 31.3 pg (25.0-34.0) 08/16/24 06:06 MCHC 34.0 g/dL (32.0-36.0) 08/16/24 06:06 RDW Std Deviation 44.6 fL (36.4-46.3) 08/16/24 06:06 RDW Coeff of Gabriel 13.2 % (11.5-14.5) 08/16/24 06:06 Plt Count 234 K/uL (130-400) 08/16/24 06:06 MPV 10.0 fL (9.4-12.4) 08/16/24 06:06 Immature Gran % (Auto) 0.3 % 08/16/24 06:06 Neut % (Auto) 64.1 % 08/16/24 06:06 Lymph % (Auto) 23.2 % 08/16/24 06:06 [place] % (Auto) 8.3 % 08/16/24 06:06 Eos % (Auto) 3.3 % 08/16/24 06:06 Baso % (Auto) 0.8 % 08/16/24 06:06 Neut # (Auto) 4.60 K/uL (1.40-6.50) 08/16/24 06:06 Lymph # (Auto) 1.67 K/uL (1.20-3.40) 08/16/24 06:06 [place] # (Auto) 0.60 K/uL (0.11-0.59) H 08/16/24 06:06 Eos # (Auto) 0.24 K/uL (0.00-0.50) 08/16/24 06:06 Baso # (Auto) 0.06 K/uL (0.00-0.20) 08/16/24 06:06 Immature Gran # (Auto) 0.02 K/uL (0.01-0.20) 08/16/24 06:06 ESR 4 mm/hr (0-15) 08/10/24 17:52 PT 11.3 Seconds (9.0-12.0) 08/10/24 17:52 INR 1.0 (0.9-1.1) 08/10/24 17:52 APTT 26 Seconds (21-31) 08/10/24 17:52 PTT Ratio 1.0 08/10/24 17:52 D-Dimer 770 ug/L FEU (0-500) H* 08/10/24 17:52 Sodium 138 mmol/L (136-145) 08/17/24 06:29 Potassium 4.4 mmol/L (3.5-5.1) 08/17/24 06:29 Chloride 105 mmol/L (98-107) 08/17/24 06:29 Carbon Dioxide 26 mmol/L (21-32) 08/17/24 06:29 Anion Gap 7 (3-11) 08/17/24 06:29 BUN 21 mg/dl (6-23) 08/17/24 06:29 Creatinine 1.13 mg/dl (0.6-1.4) 08/17/24 06:29 Est Cr Clr Drug Dosing 103.3 ml/min 08/17/24 06:29 Est GFR ( Amer) 98.4 ml/min 08/17/24 06:29 Est GFR (Non-Af Amer) 84.9 ml/min 08/17/24 06:29 BUN/Creatinine Ratio 18.6 (10-20) 08/17/24 06:29 Glucose 85 mg/dl (70-99(Fasting)) 08/17/24 06:29 Calcium 9.4 mg/dl (8.6-10.3) 08/17/24 06:29 Magnesium 2.1 mg/dl (1.7-2.4) 08/10/24 17:52 Iron 93 mcg/dl (35-175) 08/11/24 10:59 TIBC 282 mcg/dl (250-450) 08/11/24 10:59 Unsaturated IBC 189 mcg/dl (155-355) 08/11/24 10:59 Transferrin % Sat 33 % (20-50) 08/11/24 10:59 Ferritin 67.7 ng/ml (8-388) 08/11/24 10:59 Total Bilirubin 0.6 mg/dl (0.2-1.0) 08/10/24 17:52 AST 30 U/L (13-39) 08/10/24 17:52 ALT 44 U/L (7-52) 08/10/24 17:52 Alkaline Phosphatase 62 U/L (34-104) 08/10/24 17:52 Troponin I High Sens 26.8 pg/ml (0-20) H 08/11/24 07:17 C-Reactive Protein 0.54 mg/dl (0-0.5) H 08/10/24 17:52 B-Natriuretic Peptide 825 pg/ml (0-100) H 08/10/24 22:33 Total Protein 6.4 gm/dl (6.0-8.3) 08/10/24 17:52 Total Protein (PEP) 6.8 g/dL (6.1-8.1) 08/12/24 05:14 Albumin 4.2 gm/dl (3.4-5.0) 08/10/24 17:52 Albumin (PEP) 4.3 g/dL (3.8-4.8) 08/12/24 05:14 Globulin 2.2 gm/dl (2.5-4.0) L 08/10/24 17:52 Albumin/Globulin Ratio 1.9 (0.9-2) 08/10/24 17:52 Ehmie-3-Ynoexmecs 0.3 g/dL (0.2-0.3) 08/12/24 05:14 Jgpey-3-Okkhlthbq 0.7 g/dL (0.5-0.9) 08/12/24 05:14 Leqq-9-Zfycwfhw 0.4 g/dL (0.4-0.6) 08/12/24 05:14 Yimi-7-Wmvbuwmt 0.4 g/dL (0.2-0.5) 08/12/24 05:14 Gamma Globulins 0.7 g/dL (0.8-1.7) L 08/12/24 05:14 Monoclonal Peak 3 DNR g/dL (NONE DETECTED) 08/12/24 05:14 Ser Monoclonl Protein DNR g/dL (NONE DETECTED) 08/12/24 05:14 Ser Monoclonal Prot 2 DNR g/dL (NONE DETECTED) 08/12/24 05:14 PEP Interpretation SEE NOTE 08/12/24 05:14 Triglycerides 92 mg/dl (0-150) 08/11/24 07:17 Cholesterol 129 mg/dl (0-200) 08/11/24 07:17 LDL Cholesterol, Calc 81 mg/dl 08/11/24 07:17 VLDL Cholesterol, Calc 18 mg/dl (0-30) 08/11/24 07:17 HDL Cholesterol 30 mg/dl 08/11/24 07:17 Cholesterol/HDL Ratio 4.3 (0-5) 08/11/24 07:17 TSH 3.871 uIu/ml (0.300-4.500) 08/10/24 17:52 Urine Color Yellow 08/10/24 23:14 Urine Appearance Clear (Clear) 08/10/24 23:14 Urine pH 5.5 (4.5-7.5) 08/10/24 23:14 Ur Specific [place] 1.035 (1.000-1.030) H 08/10/24 23:14 Urine Protein Negative (Negative) 08/10/24 23:14 Urine Glucose (UA) Negative (Negative) 08/10/24 23:14 Urine Ketones 1+ (Negative) H 08/10/24 23:14 Urine Blood Negative (Negative) 08/10/24 23:14 Urine Nitrite Negative (Negative) 08/10/24 23:14 Urine Bilirubin Negative (Negative) 08/10/24 23:14 Urine Urobilinogen Negative (Negative) 08/10/24 23:14 Ur Leukocyte Esterase Negative (Negative) 08/10/24 23:14 U Free Mccaskill Light Ch 2.32 mg/L (<=32.90) 08/11/24 12:25 U Free Lambda Light Ch <0.74 mg/L (<=3.79) 08/11/24 12:25 U Free Mccaskill/Lambda see note 08/11/24 12:25 Urine Opiates Screen Neg (Neg) 08/10/24 23:14 Ur Methadone, Qual Neg (Neg) 08/10/24 23:14 Urine Fentanyl Screen Neg (Neg) 08/10/24 23:14 Urine Barbiturates Neg (Neg) 08/10/24 23:14 Ur Phencyclidine (PCP) Neg (Neg) 08/10/24 23:14 U Amphetamin/Meth Scrn Neg (Neg) 08/10/24 23:14 MDMA (Ecstasy) Screen Neg (Neg) 08/10/24 23:14 U Benzodiazepines Scrn Neg (Neg) 08/10/24 23:14 Ur Cocaine Metabolite Neg (Neg) 08/10/24 23:14 U Marijuana (THC) Screen Pos (Neg) H 08/10/24 23:14 U Marijuana THC Carboxy 106 ng/mL (<5) H 08/10/24 23:14 Drug Screen Comment SEE NOTE 08/10/24 23:14 Adenovirus (PCR) Not Detected (NotDetected) 08/10/24 17:56 B. pertussis DNA (PCR) Not Detected (NotDetected) 08/10/24 17:56 B.parapertussis DNA PCR Not Detected (NotDetected) 08/10/24 17:56 Lyme Disease Screen Negative (Negative) 08/11/24 10:59 C. pneumoniae DNA (PCR) Not Detected (NotDetected) 08/10/24 17:56 Coronavirus OC43 (PCR) Not Detected (NotDetected) 08/10/24 17:56 Coronavirus HKU1 (PCR) Not Detected (NotDetected) 08/10/24 17:56 Coronavirus 229E (PCR) Not Detected (NotDetected) 08/10/24 17:56 SARS-CoV-2 (PCR) Not Detected (NotDetected) 08/10/24 17:56 Coronavirus NL63 (PCR) Not Detected (NotDetected) 08/10/24 17:56 Human Metapneumovir PCR Not Detected (NotDetected) 08/10/24 17:56 Influenza Type A (PCR) Not Detected (NotDetected) 08/10/24 17:56 Influenza Type B (PCR) Not Detected (NotDetected) 08/10/24 17:56 M. pneumoniae (PCR) Not Detected (NotDetected) 08/10/24 17:56 Parainfluenza 1 (PCR) Not Detected (NotDetected) 08/10/24 17:56 Parainfluenza 2 (PCR) Not Detected (NotDetected) 08/10/24 17:56 Parainfluenza 3 (PCR) Not Detected (NotDetected) 08/10/24 17:56 Parainfluenza 4 (PCR) Not Detected (NotDetected) 08/10/24 17:56 RSV (PCR) Not Detected (NotDetected) 08/10/24 17:56 Entero/Rhino (PCR) Not Detected (NotDetected) 08/10/24 17:56 Impressions Chest X-Ray 08/10/24 16:57 XR chest 1V not portable HISTORY: 33 years-old Male Chest pain, nonspecific acute chest pain COMPARISON: 11/19/2012 chest x-ray TECHNIQUE: AP view of the chest FINDINGS: Cardiac silhouette is enlarged. No pneumothorax, pleural effusion or airspace consolidation. Bones appear normal. IMPRESSION: 1. Enlargement of the cardiac silhouette may be accentuated by technique. 2. The lungs appear clear. ACT 112: Negative or not required by law. The above report was generated using voice recognition software. It may contain grammatical, syntax or spelling errors. Electronically signed by: Boston Brown M.D. 08/10/2024 5:58 PM Chest CTA 08/10/24 17:12 Exam(s): CTA CHEST IV Amt: 119ml EXAM: CT Angiography Chest With Intravenous Contrast CLINICAL HISTORY: Reason for exam: PE. TECHNIQUE: Axial computed tomographic angiography images of the chest with intravenous contrast. CTDI is 47.14 mGy and DLP is 1012.55 mGy-cm. Automated exposure control was utilized for the study. A dose lowering technique was utilized adhering to the principles of ALARA. MIP reconstructed images were created and reviewed. COMPARISON: Chest x-ray from August 10, 2024 FINDINGS: Pulmonary arteries: The pulmonary arterial tree is well opacified with contrast. No pulmonary embolism is identified. Aorta: No acute findings. No thoracic aortic aneurysm. Lungs: Lungs are well-inflated. Slight central edema is present as well as a small amount of bibasilar subsegmental atelectasis. No mass. Pleural space: There are small bilateral pleural effusions layering posteriorly measuring 1.5 cm on the left and 4 cm on the right. No pneumothorax. Heart: The heart is mildly to moderately enlarged. No pericardial effusion. No evidence of RV dysfunction. Bones/joints: Mild degenerative changes in the spine. No acute fracture or bone lesion is identified. No dislocation. Soft tissues: Unremarkable. Lymph nodes: Unremarkable. No enlarged lymph nodes. IMPRESSION: 1. Lungs are well-inflated. Slight central edema is present as well as a small amount of bibasilar subsegmental atelectasis. 2. There are small bilateral pleural effusions layering posteriorly measuring 1.5 cm on the left and 4 cm on the right. 3. The heart is mildly to moderately enlarged. No pericardial effusion. Consider CHF. 4. The pulmonary arterial tree is well opacified with contrast. No pulmonary embolism is identified. Electronically signed by: Ajay Carvajal MD 08/10/24 20:12 PM Hospital Course (1) CHF (congestive heart failure): Patient presented with chest discomfort, orthopnea and shortness of breath for several days. Acute on chronic systolic heart failure Elevated troponin Cardiomyopathy likely familial. Genetic testing to be done as outpatient --Chest CTA: Lungs are well-inflated. Slight central edema is present as well as a small amount of bibasilar subsegmental atelectasis. There are small bilateral pleural effusions layering posteriorly measuring 1.5 cm on the left and 4 cm on the right. The heart is mildly to moderately enlarged. No pericardial effusion. Consider CHF. The pulmonary arterial tree is well opacified with contrast. No pulmonary embolism is identified. --Echocardiogram showed EF of 15 to 20%; severe global hypokinesis of left ventricle --Underwent cardiac cath on 08/15; normal coronaries, left dominant anatomic. Proximal LAD spasm confirmed by ultrasound. Severe LV dysfunction by echocardiogram. --Started on guideline directed medical therapy with metoprolol, Entresto and spironolactone. -- IV Lasix transition to p.o. Lasix -- Iron studies, TSH and Lyme screen time within normal limits. --Continue LifeVest -- Needs outpatient cardiac MRI as outpatient Plan to discharge home today Needs follow-up with cardiology on discharge Code Status Full code DVT Px: Lovenox SQ Disposition Home Total Time Total Time Spent Total Time Spent (In Minutes): 42 minutes Discharge Plan Discharge Items Patient Disposition: Home - Self-Care Reason For Visit: CHF Discharge Diagnosis: Acute heart failure with reduced ejection fraction Activity: Per Instructions section Exercise/Sports: Wait until after follow-up appointment Non-emergency contact: Primary Care Provider and Package Clerk Call non-emergency contact if: you have any medication questions, your symptoms worsen, your pain is concerning for you and you have a fever Follow-up/Referrals: Marshal Jamison DO [Primary Care Provider] - Baltazar Hare DO [Package Clerk] - (The Cardiology office will contact you for a follow up appointment/testing.) Diet: Heart Healthy Addtl Attending Provider Instructions: Follow-up with your primary care physician in 1 week Follow-up with your check and transfer beader Dr. Hare/ and is recommended. Office will call you with appointment. --No work/driving permitted until cleared by your check and transfer beader. -- Your immunological studies are pending at the time of discharge. Follow-up with your physician for results. Seek immediate medical attention if your symptoms reoccur or worsen Please take all medications as instructed on discharge list below. Please call if you have any questions or problems. You can reach a [facility] hospitalist on duty at [facility] 24 hours a day by calling [phone] Call your Primary Care doctor if any of the following symptoms or problems start or get worse: * Shortness of breath or difficulty breathing * Wake up at night short of breath * Chest pain * Cough * Swelling of your hands, feet, or legs * More fatigued or tired with your normal activity * Palpitations - sudden fast heart beats WEIGHT * Weigh yourself every morning after using the bathroom. * Use the same scale. * Wear the same amount of clothing. * Write your weight down on a chart. * Call your Primary Care doctor if you gain more than 2-3 pounds in 1-2 days. MEDICATIONS * Use this discharge instruction sheet for medication instructions. * Take your medications at the time your doctor ordered. * Do not skip a dose of your medicines. * If you miss a dose of medicine, take it as soon as possible, but DO NOT DOUBLE A DOSE. * Read your medicine information when you get home. * Know all of the side effects of your medicine. If in doubt, ask your pharmacist * Call your Primary Care doctor's office if you have any side effects. * Be sure all of your doctors know what medicine and herbs you take (including cold, flu, and herbal medicine). Take the following with you to your follow-up doctor appointments: * Weight Chart * Medication List * List of questions Do not drink excessive alcohol, beer or wine. Pending Studies at Discharge: Yes Studies:: Immunological Studies Stand-Alone Forms: My [facility] [employer], Work/School Release, Smoking Cessation Medications and DC Order Prescriptions: New metronidazole 0.75 % Gel 1 applic topical BID 7 Days Qty: 45 0RF metoprolol succinate 100 mg tablet extended release 24 hr 100 mg PO BID 30 Days Qty: 60 1RF aspirin 81 mg Tablet,Delayed Release (Dr/Ec) 81 mg PO DAILY Qty: 30 1RF spironolactone 25 mg Tablet 25 mg PO QAM Qty: 30 1RF furosemide 20 mg Tablet 20 mg PO QAM Qty: 30 1RF Entresto 24-26 mg Tablet 1 tab PO BID 30 Days Qty: 60 1RF Discharge Orders: Discharge Order (Routine); Ordered 08/17/24 Ordered By: Arsalan Blanco Admission Data Admit Date/Time: 08/10/24 23:47 Attending Provider: Arsalan Blanco Admit Provider: Lukas Jackson Primary Care Provider: Marshal Jamison Other Providers: Lukas Jackson; Svetlana Fajardo; Lester Rene; Rigo Pandya; Baltazar Hare; Jose Alberto Escobar; Andi Griffith; Genesis Cardona; Ruby Rosenberg; Linda Powers; Svetlana Sanchez; Remington Brock; Armen Coats; Sandie Candelario; Nancy Ponce; Keyona Chairez; Stan Estrada; Yaniv Brunner; Gisel Chanel Other Interventions: Discharge Summary Assessment (RN) Last Done: 08/17/24 11:39
[2024-08-17 11:41] VITALS: PULSE 94
[2024-08-18 16:58] LABS: Free Kappa 18.3 mg/L (3.3-19.4); Free Kappa/Lambda Ratio 0.89 (0.26-1.65); Free Lambda 20.6 mg/L (5.7-26.3); Kappa Lambda Ratio 1.57 (1.29-2.55)
== END 2024-08-17 12:10 | disposition home or self-care (01) | DRG 286 ==
LOC: ED 16:51 → 2E 22:46 → INTOOBSV 22:46 → SUATTDRO 23:47 → 2E 08-11 01:00